=== PATIENT | female | born 1990 | race Caucasian/White ===

== ENCOUNTER 2016-07-16 20:10 | Emergency (ER) | payer MEDICAID ==
[2016-07-16] MEDS ORDERED: cefTRIAXone 1 GM in Sodium Chloride 0.9% 50 ML IV ONE (21:02)
[2016-07-16] MEDS ORDERED: Ketorolac 30 MG/ML SDV IVPUSH ONE (21:03)
[2016-07-16] MEDS ORDERED: Phenazopyridine 95 MG Tab PO ONE (21:03)
--- NOTE | 2016-07-16 21:05 | EDM.PDOC ---
[id number] INFECTION Time Seen by Provider: 07/16/16 21:05 Source: Reports: Patient History Limitations: Reports: No limitations - History of Present Illness INITIAL COMMENTS - FREE TEXT/NARRATIVE: pt arrived with pain in left flank at a 4-5. She has been vomiting for the past 2 days. She did have a fever of 102 this am. This pm she is holding some water down. 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 ) : Reports: no symptoms ED EXAM, RENAL/ - Physical Exam Exam: See Below Text/Narrative:: Pt arrived with pain in the left flank and dysuria. Exam Limited By: No limitations General Appearance: alert, anxious Ears: normal TMs Nose: normal inspection Throat/Mouth: Normal inspection Head: atraumatic Neck: normal inspection Respiratory/Chest: no respiratory distress Cardiovascular: regular rate, rhythm GI/Abdominal: other (pt has mild left flank tenderness. ) Rectal (Female) Exam: Deferred Back Exam: normal inspection Extremities: normal inspection Neurological: alert, oriented Course - Vital Signs Last Recorded V/S: Last Vital Signs Temp 36.9 C 07/16/16 22:21 Pulse 83 07/16/16 22:21 Resp 16 07/16/16 22:21 BP 104/34 L 07/16/16 22:21 Pulse Ox 99 07/16/16 22:21 - Orders/Labs/Meds Labs: Laboratory Tests 07/16/16 07/16/16 07/16/16 Range/Units 20:36 21:03 21:03 WBC 7.6 (4.5-11.0) K/uL RBC 4.78 (3.30-5.50) M/uL Hgb 13.9 (12.0-15.0) g/dL Hct 41.6 (36.0-48.0) % MCV 87 (80-98) fL MCH 29 (27-31) pg MCHC 33 (32-36) % Plt Count 244 (150-400) K/uL Neut % (Auto) 77 H (36-66) % Lymph % (Auto) 12 L (24-44) % [place] % (Auto) 8 H (2-6) % Eos % (Auto) 2 (2-4) % Baso % (Auto) 0 (0-1) % Sodium 140 (140-148) mmol/L Potassium 3.6 (3.6-5.2) mmol/L Chloride 102 (100-108) mmol/L Carbon Dioxide 28 (21-32) mmol/L Anion Gap 10.1 (5.0-14.0) mmol/L BUN 11 (7-18) mg/dL Creatinine 0.9 (0.6-1.0) mg/dL Est Cr Clr Drug Dosing 94.54 mL/min Estimated GFR (MDRD) > 60 (>60) Glucose 107 H (74-106) mg/dL Calcium 8.5 (8.5-10.1) mg/dL Total Bilirubin 0.7 (0.2-1.0) mg/dL AST 13 L (15-37) U/L ALT 23 (12-78) U/L Alkaline Phosphatase 74 (46-116) U/L C-Reactive Protein 2.90 H (0.0-0.3) mg/dL Total Protein 7.6 (6.4-8.2) g/dL Albumin 3.6 (3.4-5.0) g/dL Globulin 4.0 H (2.3-3.5) g/dL Albumin/Globulin Ratio 0.9 L (1.2-2.2) Urine Color Yellow Urine Appearance Slightly cloudy Urine pH 5.0 (4.5-8.0) Ur Specific [place] 1.010 (1.008-1.030) Urine Protein Negative (NEGATIVE) mg/dL Urine Glucose (UA) Normal (NEGATIVE) mg/dL Urine Ketones Negative (NEGATIVE) mg/dL Urine Occult Blood Trace (NEGATIVE) Urine Nitrite Negative (NEGATIVE) Urine Bilirubin Small (NEGATIVE) Urine Urobilinogen Normal (NORMAL) mg/dL Ur Leukocyte Esterase Large (NEGATIVE) Urine RBC 0-5 (0-5) Urine WBC 20-30 H (0-5) Ur Epithelial Cells Many Amorphous Sediment Not seen Urine Bacteria Not seen Urine Mucus Few Meds: Medications Discontinued Medications Generic Name Dose Route Start Last Admin Trade Name Freq PRN Reason Stop Dose Admin Sodium Chloride 1,000 mls @ 999 mls/hr 07/16/16 21:15 07/16/16 21:15 Normal Saline IV 999 mls/hr ASDIRECTED NI Administration Ceftriaxone Sodium 1 gm/ 50 mls @ 100 mls/hr 07/16/16 21:02 07/16/16 21:26 Sodium Chloride IV 07/16/16 21:31 100 mls/hr ONETIME ONE Administration Ketorolac Tromethamine 30 mg 07/16/16 21:03 07/16/16 21:24 Toradol IVPUSH 07/16/16 21:04 30 mg ONETIME ONE Administration Phenazopyridine HCl 190 mg 07/16/16 21:03 07/16/16 21:23 Urinary Pain Relief PO 07/16/16 21:04 190 mg ONETIME ONE Administration - Re-Assessments/Exams Free Text/Narrative Re-Assessment/Exam: 07/16/16 22:21 urine does look infected and she was cultured. She was given a liter of fluid. she is feeling better after the fluid. She was given rocephen. iv. Departure - Departure Time of Disposition: 22:55 Disposition: Home, Self-Care 01 Condition: fair Clinical Impression: UTI (urinary tract infection) Instructions: Urinary Tract Infection, Adult, [id number] Referrals: PCP,None [Primary Care Provider] - Forms: ED Department Discharge Care Plan Goals: push fluids, pyridium 200mg tid, cipro 500mg bid. rtc if problems.
[2016-07-16] MEDS ORDERED: Sodium Chloride 0.9% 1,000 ML IV SCH (21:15)
[2016-07-16 22:22] VITALS: BP 104/34
== END 2016-07-16 22:50 | disposition home or self-care (01) ==
LOC: JP.ED 20:10
DX: N39.0 Urinary tract infection, site not specified (principal); Z88.2 Allergy status to sulfonamides
CPT/HCPCS: 36415; 80053; 81001; 85025; 86140; 87086; 96365; 96375; 99284; A9270; J0696; J1885; J7040; J7050; 87088; 87186

== ENCOUNTER 2016-08-26 09:15 | Emergency (ER) | payer MEDICAID ==
[2016-08-26] MEDS ORDERED: Ketorolac 60 MG/2 ML SDV IM ONE (09:57)
[2016-08-26] MEDS ORDERED: Ondansetron 4 MG Tab.DIS PO ONE (09:58)
--- NOTE | 2016-08-26 10:08 | EDM.PDOC ---
ED HPI GENERAL MEDICAL PROBLEM - General Chief Complaint: General Stated Complaint: VOMITING/LOW RT BACK PAIN Time Seen by Provider: 08/26/16 09:55 Source of Information: Reports: Patient, Old Records, RN History Limitations: Reports: No Limitations - History of Present Illness INITIAL COMMENTS - FREE TEXT/NARRATIVE: 25 yo female awoke last night with right flank pain and vomiting. Later developed some diarrhea. No hematuria, dysuria, or fever. Took acetaminophen for the flank pain with partial relief. No hx of kidney stones. Onset: Today Onset Date: 08/26/16 Onset Time: 01:00 Duration: Hour(s):, Constant Location: Reports: Back (R flank) Quality: Reports: Ache Severity: Moderate Improves with: Reports: Medication (Acetaminophen reduced) Worsens with: Reports: None Context: Reports: Other (associated with vomiting and diarrhea) Associated Symptoms: Reports: Loss of Appetite, Nausea/Vomiting, Other (diarrhea ). 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 Denies: Fever, Chills HEENT: Reports: No Symptoms Respiratory: Reports: No Symptoms Cardiovascular: Reports: No Symptoms Endocrine: Reports: No Symptoms GI/Abdominal: Reports: Diarrhea, Decreased Appetite, Nausea, Vomiting. Denies: Abdominal Pain, Black Stool, Bloody Stool, Distension, Hematemesis, Hematochezia , Melena, Stool Incontinence : Reports: Flank Pain (right) Musculoskeletal: Reports: No Symptoms Skin: Reports: No Symptoms Neurological: Reports: No Symptoms Psychiatric: Reports: No Symptoms ED EXAM, GENERAL - Physical Exam Exam: See Below Exam Limited By: No Limitations General Appearance: Alert, WD/WN, No Apparent Distress, Obese Eye Exam: Bilateral Eye: Normal Inspection, PERRL Ears: Normal External Exam, Normal Canal, Hearing Grossly Normal Ear Exam: Bilateral Ear: Auricle Normal, Canal Normal, TM normal Nose: Normal Inspection, Normal Mucosa, No Blood Throat/Mouth: Normal Inspection, Normal Lips, Normal Teeth, Normal Oropharynx, Normal Voice, No Airway Compromise Head: Atraumatic, Normocephalic Neck: Normal Inspection, Supple, Non-Tender Respiratory/Chest: No Respiratory Distress, Lungs Clear, Normal Breath Sounds, No Accessory Muscle Use Cardiovascular: Regular Rate, Rhythm, No Edema GI/Abdominal: Normal Bowel Sounds, Soft, Non-Tender, No Distention Back Exam: Normal Inspection, CVA Tenderness (R). No: CVA Tenderness (L), Muscle Spasm, Vertebral Tenderness Extremities: Normal Inspection, Normal Range of Motion, Non-Tender, No Pedal Edema Neurological: Alert, Oriented, CN II-XII Intact, Normal Cognition, No Motor/ Sensory Deficits Psychiatric: Normal Affect, Normal Mood Skin Exam: Warm, Dry, Intact, Normal Color, No Rash Lymphatic: No Adenopathy Course - Vital Signs Text/Narrative:: Orthostatic vitals Toradol 60 mg IM, Zofran ODT 4 mg SL Last Recorded V/S: Last Vital Signs Temp 35.4 C 08/26/16 09:26 Pulse 112 H 08/26/16 09:26 Resp 16 08/26/16 09:26 BP 152/75 H 08/26/16 09:26 Pulse Ox 95 08/26/16 09:26 Orthostatic Blood Pressure [ 136/108 Standing] Orthostatic Blood Pressure [ 87/42 Sitting] Orthostatic Blood Pressure [ 96/51 Supine] - Orders/Labs/Meds Orders: Active Orders 24 hr Category Date Time Status Orthostatic Vital Signs [RC] ASDIRECTED Care 08/26/16 10:02 Active CULTURE URINE [RM] Stat Lab 08/26/16 11:02 Ordered [email or web address] [Rocephin] Med 08/26/16 11:03 Once 1 gm IM ONETIME ONE Labs: Laboratory Tests 08/26/16 08/26/16 Range/Units 09:57 10:50 Urine Color Yellow Urine Appearance Slightly cloudy Urine pH 9.0 H (4.5-8.0) Ur Specific [place] 1.015 (1.008-1.030) Urine Protein Negative (NEGATIVE) mg/dL Urine Glucose (UA) Normal (NEGATIVE) mg/dL Urine Ketones Negative (NEGATIVE) mg/dL Urine Occult Blood Negative (NEGATIVE) Urine Nitrite Negative (NEGATIVE) Urine Bilirubin Negative (NEGATIVE) Urine Urobilinogen Normal (NORMAL) mg/dL Ur Leukocyte Esterase Moderate (NEGATIVE) Urine RBC 0-5 (0-5) Urine WBC 10-20 H (0-5) Ur Epithelial Cells Moderate Amorphous Sediment Not seen Urine Bacteria Moderate Urine Mucus Not seen Urine HCG, Qual Negative Meds: Medications Discontinued Medications Generic Name Dose Route Start Last Admin Trade Name Freq PRN Reason Stop Dose Admin Ketorolac Tromethamine 60 mg 08/26/16 09:57 08/26/16 10:03 Toradol IM 08/26/16 09:58 60 mg ONETIME ONE Administration Ondansetron HCl 4 mg 08/26/16 09:58 08/26/16 10:03 Zofran Odt PO 08/26/16 09:59 4 mg ONETIME ONE Administration Departure - Departure Time of Disposition: 11:30 Disposition: Home, Self-Care 01 Condition: fair Clinical Impression: Nausea vomiting and diarrhea UTI (urinary tract infection) Qualifiers: Urinary tract infection type: site unspecified Hematuria presence: without hematuria Qualified Code(s): N39.0 - Urinary tract infection, site not specified - Discharge Information Forms: ED Department Discharge - My Orders Last 24 Hours: My Active Orders 08/26/16 10:02 Orthostatic Vital Signs [RC] ASDIRECTED 08/26/16 11:02 CULTURE URINE [RM] Stat 08/26/16 11:03 [email or web address] [Rocephin] 1 gm IM ONETIME ONE - Assessment/Plan Last 24 Hours: My Active Orders 08/26/16 10:02 Orthostatic Vital Signs [RC] ASDIRECTED 08/26/16 11:02 CULTURE URINE [RM] Stat 08/26/16 11:03 [email or web address] [Rocephin] 1 gm IM ONETIME ONE
[2016-08-26] MEDS ORDERED: cefTRIAXone 1 GM Vial IM ONE (11:03)
[2016-08-26] MEDS ORDERED: Lidocaine 1% PF 2 ML SDV INJECT ONE (11:09)
[2016-08-26 11:12] VITALS: BP 120/75
== END 2016-08-26 11:31 | disposition home or self-care (01) ==
LOC: JP.ED 09:15
DX: R11.2 Nausea with vomiting, unspecified (principal); R19.7 Diarrhea, unspecified; N39.0 Urinary tract infection, site not specified; Z79.899 Other long term (current) drug therapy; Z88.2 Allergy status to sulfonamides
CPT/HCPCS: 81001; 81025; 87086; 96372; 99284; A9270; J0696; J1885

== ENCOUNTER 2017-05-19 19:27 | Emergency (ER) | payer MEDICAID ==
[2017-05-19 19:57] VITALS: BP 126/77
[2017-05-19] MEDS ORDERED: Ondansetron 4 MG/2 ML SDV IVPUSH ONE (20:05)
[2017-05-19] MEDS ORDERED: Sodium Chloride 0.9% 1,000 ML IV SCH (20:15)
--- NOTE | 2017-05-19 20:22 | EDM.PDOC ---
ED HPI GENERAL MEDICAL PROBLEM - General Chief Complaint: Gastrointestinal Problem Stated Complaint: FLU SYMPTOMS / 10 WEEKS PG Time Seen by Provider: 05/19/17 19:50 Source of Information: Reports: Patient History Limitations: Reports: No Limitations - History of Present Illness INITIAL COMMENTS - FREE TEXT/NARRATIVE: 26-year-old female who is 10 weeks , was seen yesterday for routine and everything was good, heart tones were normal. She had been having a day of nausea with occasional vomiting and attributed it to the , but over the last 24 hours she's had increased vomiting and diarrhea. She also has children in the house that are starting to develop some symptoms. She called the nurse hotline and they recommended she come in for some symptomatic treatment and IV fluids. She had a low-grade fever just over 100 earlier today but no chills, she has not vomited any blood or passed any blood in the stool. No significant pain other than a mild cramping sensation in the lower abdomen. No vaginal spotting. Onset: Gradual (Over the last 2 days) Severity: Moderate Associated Symptoms: Reports: Fever/Chills (She may have been running a low- grade fever earlier today) generalized/ lower abd Pain Score (Numeric/FACES): 4 - Related Data Allergies Allergy/AdvReac Type Severity Reaction Status Date / Time Sulfa (Sulfonamide Allergy Nausea and Verified 05/19/17 19:53 Antibiotics) Vomiting Home Meds: Home Meds Pnv No.95/Ferrous Fum/Folic AC [ Multivitamin Tablet] 1 tab PO DAILY [History] Past Medical History HEENT History: Reports: Impaired Vision Genitourinary History: Reports: Pyelonephritis, UTI, Recurrent 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: 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 - Infectious Disease History Infectious Disease History: Reports: Chicken Pox - Past Surgical History HEENT Surgical History: Reports: Myringotomy w Tube(s) Social & Family History - Tobacco Use Smoking Status *Q: Never Smoker - Caffeine Use Caffeine Use: Reports: None - Recreational Drug Use Recreational Drug Use: No ED ROS GENERAL - Review of Systems Review Of Systems: See Below Constitutional: Reports: Fever (Low-grade earlier today) HEENT: Reports: No Symptoms Respiratory: Denies: Shortness of Breath Cardiovascular: Denies: Chest Pain GI/Abdominal: Reports: Abdominal Pain : Reports: No Symptoms Skin: Reports: No Symptoms Neurological: Reports: No Symptoms. Denies: Headache Psychiatric: Reports: No Symptoms ED EXAM, GI/ABD - Physical Exam Exam: See Below Exam Limited By: No Limitations General Appearance: Alert, No Apparent Distress Eyes: Bilateral: Normal Appearance (Good hydration) Throat/Mouth: Other (Mucous membranes are moist) Respiratory/Chest: No Respiratory Distress, Lungs Clear Cardiovascular: Tachycardia GI/Abdominal Exam: Normal Bowel Sounds, Soft, Tender (Just slight tenderness across the lower abdomen, no guarding or rebound) Extremities: Normal Inspection Neurological: Alert, Oriented Psychiatric: Normal Affect, Normal Mood Skin Exam: Warm, Dry Course - Vital Signs Last Recorded V/S: Last Vital Signs Temp 99.8 F 05/19/17 19:54 Pulse 116 H 05/19/17 19:54 Resp 18 05/19/17 19:54 BP 126/77 05/19/17 19:54 Pulse Ox 97 05/19/17 19:54 - Orders/Labs/Meds Meds: Medications Discontinued Medications Generic Name Dose Route Start Last Admin Trade Name Angie PRN Reason Stop Dose Admin Sodium Chloride 1,000 mls @ 1,000 mls/hr 05/19/17 20:15 05/19/17 20:15 Normal Saline IV 1,000 mls/hr ASDIRECTED NI Administration Ondansetron HCl 4 mg 05/19/17 20:05 05/19/17 20:15 Zofran IVPUSH 05/19/17 20:06 4 mg ONETIME ONE Administration - Re-Assessments/Exams Free Text/Narrative Re-Assessment/Exam: 05/19/17 20:22 An IV was started and the patient was given 1 L normal saline along with 4 mg of IV Zofran. 05/19/17 20:39 The IV Zofran took away her nausea. She felt much better after the IV fluids and Zofran. She'll be discharged with 5 additional doses of sublingual Zofran to use up to 3 times daily and should return if worsening despite treatment. Also consider recheck in 2-3 days if still persistent diarrhea and not improving satisfactorily Departure - Departure Time of Disposition: 21:13 Disposition: Home, Self-Care 01 Condition: Good Clinical Impression: Gastroenteritis - Discharge Information Instructions: Viral Gastroenteritis, Adult, [id number] Referrals: Roya Chandler CNM [Primary Care Provider] - Forms: ED Department Discharge Care Plan Goals: Use Zofran up to 3 times daily for nausea if needed. Advance diet as tolerated concentrating on fluids initially. Return anytime if worsening despite treatment , or consider rechecking in 2-3 days if not improving satisfactorily.
== END 2017-05-19 21:13 | disposition home or self-care (01) ==
LOC: JP.ED 19:27
DX: O99.611 Diseases of the digestive system complicating pregnancy, first trimester (principal); K52.9 Noninfective gastroenteritis and colitis, unspecified; Z88.2 Allergy status to sulfonamides; Z3A.10 10 weeks gestation of pregnancy
CPT/HCPCS: 96361; 96374; 99283; 99283-25; J2405; J7040

== ENCOUNTER 2017-12-16 22:43 | Inpatient (IN) | payer MEDICAID ==
[2017-12-16] MEDS ORDERED: Sodium Chloride 0.9% 10 ML Syringe FLUSH PRN (23:59)
[2017-12-17] MEDS ORDERED: fentaNYL 100 MCG/2 ML SDV IVPUSH PRN (02:13)
[2017-12-17] MEDS ORDERED: Acetaminophen 325 MG Tab PO PRN (02:13)
[2017-12-17] MEDS ORDERED: Ondansetron 4 MG/2 ML SDV IV PRN (02:13)
[2017-12-17] MEDS ORDERED: Lactated Ringers 1,000 ML IV SCH (02:15)
--- NOTE | 2017-12-17 02:23 | PCM.LDHP ---
L&D History of Present Illness - General Date of Service: 12/17/17 Admit Problem/Dx: Patient Status Order with Admit Dx/Problem 12/17/17 02:13 Patient Status [ADT] Routine Admission Diagnosis/Problem Admission Diagnosis/Problem - Related Data Allergies/Adverse Reactions: Allergies Allergy/AdvReac Type Severity Reaction Status Date / Time Sulfa (Sulfonamide Allergy Nausea and Verified 05/19/17 19:53 Antibiotics) Vomiting Home Medications: Home Meds Pnv No.95/Ferrous Fum/Folic AC [ Multivitamin Tablet] 1 tab PO DAILY [History] Amoxicillin 500 mg PO BID 11/07/17 [History] Ondansetron [Zofran ODT] 4 mg PO Q8H 11/07/17 [History] Past Medical History HEENT History: Reports: Impaired Vision Genitourinary History: Reports: Pyelonephritis, UTI, Recurrent [employer] History: Reports: : 2 Para: 1 Other OB/BYN History: KARI-12/14/2017 Musculoskeletal History: 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 - Infectious Disease History Infectious Disease History: Reports: Chicken Pox - Past Surgical History HEENT Surgical History: Reports: Myringotomy w Tube(s) Female Surgical History: Reports: None Social & Family History - Family History Family Medical History: Noncontributory - Tobacco Use Smoking Status *Q: Never Smoker Second Hand Smoke Exposure: No - Caffeine Use Caffeine Use: Reports: Coffee, Soda Caffeine Use Comment: 1 soda/ cofee daily - Recreational Drug Use Recreational Drug Use: No H&P Review of Systems - Review of Systems: Review Of Systems: See Below General: Reports: No Symptoms HEENT: Reports: No Symptoms Pulmonary: Reports: No Symptoms Cardiovascular: Reports: No Symptoms Gastrointestinal: Reports: No Symptoms Genitourinary: Reports: No Symptoms Musculoskeletal: Reports: No Symptoms Skin: Reports: No Symptoms Psychiatric: Reports: No Symptoms Neurological: Reports: No Symptoms Hematologic/Lymphatic: Reports: No Symptoms Immunologic: Reports: No Symptoms L&D Exam - Exam Exam: See Below - Vital Signs Vital Signs: Last Vital Signs Temp 36.6 C 12/16/17 22:50 Pulse 96 12/16/17 22:50 Resp BP 117/79 12/16/17 22:50 Pulse Ox 96 12/16/17 22:50 Weight: 220 kg - OB Specific Contraction Duration (sec): 40-70 Contraction Frequency (min): 6-10 Contraction Intensity: Mild Heart Rate (FHR) Variability: Moderate (6-25 bmp) Presentation: Vertex - Ang Score Ang Score Cervix Position: Midposition Ang Score Consistency: Soft Ang Score Effacement: 51-70% Ang Score Dilation: 1-2 cm Ang Score 's Station: -1 ,0 Ang Score Total: 8 - Exam General: Alert, Oriented HEENT: PERRLA, Conjunctiva Clear, EACs Clear, EOMI, Hearing Intact, Mucosa Moist & [place], Nares Patent, Normal Nasal Septum, Posterior Pharynx Clear, TMs Clear Neck: Supple, Trachea Midline Lungs: Clear to Auscultation, Normal Respiratory Effort Cardiovascular: Regular Rate, Regular Rhythm GI/Abdominal Exam: Normal Bowel Sounds, Soft, Non-Tender, No Organomegaly, No Distention, No Abnormal Bruit, No Mass, Pelvis Stable Rectal Exam: Normal Exam, Normal Rectal Tone Genitourinary: Normal external exam, Normal bimanual exam, Normal speculum exam Back Exam: Normal Inspection, Full Range of Motion Extremities: Normal Inspection, Normal Range of Motion, Non-Tender, No Pedal Edema, Normal Capillary Refill, Pedal Edema (3+ pitting pedal and edema up to top of tibia) Skin: Warm, Dry, Intact Neurological: Cranial Nerves Intact, Reflexes Equal Bilateral DTR: 2+: Patella (L), Patella (R) Psychiatric: Alert, Normal Affect, Normal Mood - Patient Data Lab Results Last 24 hrs: Laboratory Results - last 24 hr 12/16/17 12/16/17 12/16/17 Range/Units 00:01 00:15 22:51 WBC 11.0 (4.5-11.0) K/uL RBC 3.80 (3.30-5.50) M/uL Hgb 10.5 L D (12.0-15.0) g/dL Hct 31.5 L (36.0-48.0) % MCV 83 (80-98) fL MCH 28 (27-31) pg MCHC 33 (32-36) % Plt Count 281 (150-400) K/uL Neut % (Auto) 79 H (36-66) % Lymph % (Auto) 16 L (24-44) % [place] % (Auto) 5 (2-6) % Eos % (Auto) 1 L (2-4) % Baso % (Auto) 0 (0-1) % Urine Color Yellow Urine Appearance Slightly cloudy Urine pH 5.0 (4.5-8.0) Ur Specific [place] 1.025 (1.008-1.030) Urine Protein 30 H (NEGATIVE) mg/dL Urine Glucose (UA) Normal (NEGATIVE) mg/dL Urine Ketones Negative (NEGATIVE) mg/dL Urine Occult Blood Moderate (NEGATIVE) Urine Nitrite Negative (NEGATIVE) Urine Bilirubin Small (NEGATIVE) Urine Urobilinogen 4 (NORMAL) mg/dL Ur Leukocyte Esterase Small (NEGATIVE) Urine RBC 5-10 H (0-5) Urine WBC 0-5 (0-5) Ur Epithelial Cells Moderate Amorphous Sediment Urine Bacteria Few Urine Mucus Few Membrane Rupture (NEGATIVE) Urine Opiates Screen Negative (NEGATIVE) Ur Oxycodone Screen Negative (NEGATIVE) Urine Methadone Screen Negative (NEGATIVE) Ur Propoxyphene Screen Negative (NEGATIVE) Ur Barbiturates Screen Negative (NEGATIVE) Ur Tricyclics Screen Negative (NEGATIVE) Ur Phencyclidine Scrn Negative (NEGATIVE) Ur Amphetamine Screen Negative (NEGATIVE) U Methamphetamines Scrn Negative (NEGATIVE) Urine MDMA Screen Negative (NEGATIVE) U Benzodiazepines Scrn Negative (NEGATIVE) U Cocaine Metab Screen Negative (NEGATIVE) U Marijuana (THC) Screen Negative (NEGATIVE) 12/16/17 Range/Units 23:24 WBC (4.5-11.0) K/uL RBC (3.30-5.50) M/uL Hgb (12.0-15.0) g/dL Hct (36.0-48.0) % MCV (80-98) fL MCH (27-31) pg MCHC (32-36) % Plt Count (150-400) K/uL Neut % (Auto) (36-66) % Lymph % (Auto) (24-44) % [place] % (Auto) (2-6) % Eos % (Auto) (2-4) % Baso % (Auto) (0-1) % Urine Color Urine Appearance Urine pH (4.5-8.0) Ur Specific [place] (1.008-1.030) Urine Protein (NEGATIVE) mg/dL Urine Glucose (UA) (NEGATIVE) mg/dL Urine Ketones (NEGATIVE) mg/dL Urine Occult Blood (NEGATIVE) Urine Nitrite (NEGATIVE) Urine Bilirubin (NEGATIVE) Urine Urobilinogen (NORMAL) mg/dL Ur Leukocyte Esterase (NEGATIVE) Urine RBC (0-5) Urine WBC (0-5) Ur Epithelial Cells Amorphous Sediment Urine Bacteria Urine Mucus Membrane Rupture Positive H (NEGATIVE) Urine Opiates Screen (NEGATIVE) Ur Oxycodone Screen (NEGATIVE) Urine Methadone Screen (NEGATIVE) Ur Propoxyphene Screen (NEGATIVE) Ur Barbiturates Screen (NEGATIVE) Ur Tricyclics Screen (NEGATIVE) Ur Phencyclidine Scrn (NEGATIVE) Ur Amphetamine Screen (NEGATIVE) U Methamphetamines Scrn (NEGATIVE) Urine MDMA Screen (NEGATIVE) U Benzodiazepines Scrn (NEGATIVE) U Cocaine Metab Screen (NEGATIVE) U Marijuana (THC) Screen (NEGATIVE) Result Diagrams: 12/16/17 00:15 - Problem List (1) SNOMED Code(s): 44170032 ICD Code: Z34.90 - ENCNTR FOR SUPRVSN OF NORMAL , UNSP, UNSP TRIMESTER Status: Acute Current Visit: Yes Qualifiers: Weeks of gestation: 40 weeks Qualified Code(s): Z3A.40 - 40 weeks gestation of (2) SROM (spontaneous rupture of membranes) SNOMED Code(s): 860009993 ICD Code: EXT7805 - Status: Acute Current Visit: Yes Problem List Initiated/Reviewed/Updated: Yes Orders Last 24hrs: Active Orders 24 hr Category Date Time Status Patient Status [ADT] Routine ADT 12/17/17 02:13 Ordered Ambulate [RC] PER UNIT ROUTINE Care 12/17/17 02:13 Ordered Communication Order [RC] ASDIRECTED Care 12/16/17 23:59 Active Heart Tones [RC] PER UNIT ROUTINE Care 12/16/17 23:59 Active Non Stress Test [RC] Click to Edit Care 12/16/17 23:59 Active Notify Provider Vital Signs [RC] PRN Care 12/17/17 02:13 Ordered Notify Provider [RC] PRN Care 12/16/17 23:59 Active Notify Provider [RC] PRN Care 12/17/17 02:13 Ordered OB Check [OM.PC] Click to Edit Care 12/16/17 22:51 Ordered Up ad Radha [RC] ASDIRECTED Care 12/16/17 23:59 Active VTE/DVT Education [RC] Click to Edit Care 12/17/17 02:16 Ordered Vaccines to be Administered [RC] DAILY Care 12/17/17 00:36 Active Vital Signs [RC] PER UNIT ROUTINE Care 12/16/17 23:59 Active Regular Diet [DIET] Diet 12/17/17 Breakfast Active Acetaminophen [Tylenol] Med 12/17/17 02:13 Ordered 650 mg PO Q4H PRN Diphth,Pertuss(Acell),Tet Vac [Adacel] Med 12/19/17 00:36 Once 0.5 ml IM .ONCE ONE Lactated Ringers @ 125 MLS/HR(1000ml) Med 12/17/17 02:15 Ordered Lactated Ringers [Ringers, Lactated] 1,000 ml IV ASDIRECTED Ondansetron [Zofran] Med 12/17/17 02:13 Ordered 4 mg IV Q4H PRN Oxytocin/Normal Saline [Pitocin in NS 20 Units/1,000 ML Med 12/17/17 02:30 Ordered ] 20 unit in 1,000 ml IV TITRATE Sodium Chloride 0.9% [Saline Flush] Med 12/16/17 23:59 Active 10 ml FLUSH ASDIRECTED PRN fentaNYL [Sublimaze] Med 12/17/17 02:13 Ordered 100 mcg IVPUSH Q1H PRN DVT/VTE Prophylaxis Reflex [OM.PC] Routine Oth 12/17/17 02:13 Ordered Saline Lock Insert [OM.PC] Routine Oth 12/16/17 23:58 Ordered Saline Lock Insert [OM.PC] Routine Oth 12/16/17 23:59 Ordered Resuscitation Status Routine Resus Stat 12/16/17 23:59 Ordered Medication Orders Acetaminophen (Tylenol) 650 mg PO Q4H PRN PRN Reason: Pain (Mild 1-3) and fever Diphtheria/Tetanus/Acell Pertussis (Adacel) 0.5 ml IM .ONCE ONE Stop: 12/19/17 00:37 Fentanyl (Sublimaze) 100 mcg IVPUSH Q1H PRN PRN Reason: Pain (moderate 4-6) Lactated Ringer's (Ringers, Lactated) 1,000 mls @ 125 mls/hr IV ASDIRECTED NI Oxytocin/Sodium Chloride (Pitocin In Ns 20 Units/1,000 Ml) 20 unit in 1,000 mls @ 6 mls/hr IV TITRATE NI; Protocol Ondansetron HCl (Zofran) 4 mg IV Q4H PRN PRN Reason: Nausea/Vomiting Sodium Chloride (Saline Flush) 10 ml FLUSH ASDIRECTED PRN PRN Reason: Keep Vein Open Assessment/Plan Comment:: 12/17/2017 27 yo came in tonight with SROM at about 2100 on 12/16/2017 She is currently 40 3/7 gestational weeks Contractions very irregular SVE-2-3/60/-1--2 FHTs category one Patient tolerating contractions well Plan- Continue to monitor labor Continue to monitor FHTs Start Pitocin per protocol Pain management per patient request Plan and anticipate a vaginal delivery
--- NOTE | 2017-12-17 05:53 | PCM.PNLD ---
Labor Progress Note - VS & Meds Vital Signs: Last Vital Signs Temp 36.2 C 12/17/17 03:40 Pulse 98 12/17/17 03:40 Resp 18 12/17/17 03:40 BP 129/94 H 12/17/17 03:40 Pulse Ox 98 12/17/17 03:40 Active Medications: Current Medications Acetaminophen (Tylenol) 650 mg PO Q4H PRN PRN Reason: Pain (Mild 1-3) and fever Diphtheria/Tetanus/Acell Pertussis (Adacel) 0.5 ml IM .ONCE ONE Stop: 12/19/17 00:37 Fentanyl (Sublimaze) 100 mcg IVPUSH Q1H PRN PRN Reason: Pain (moderate 4-6) Lactated Ringer's (Ringers, Lactated) 1,000 mls @ 125 mls/hr IV ASDIRECTED NI Last Admin: 12/17/17 02:51 Dose: 125 mls/hr Oxytocin/Sodium Chloride (Pitocin In Ns 20 Units/1,000 Ml) 20 unit in 1,000 mls @ 6 mls/hr IV TITRATE NI; Protocol Last Titration: 12/17/17 03:32 Dose: 4 munits/min, 12 mls/hr Ondansetron HCl (Zofran) 4 mg IV Q4H PRN PRN Reason: Nausea/Vomiting Sodium Chloride (Saline Flush) 10 ml FLUSH ASDIRECTED PRN PRN Reason: Keep Vein Open - Uterine Contractions Uterine Monitoring Mode: External [place] Contraction Frequency (min): 2.5-4 Contraction Duration (sec): 50-70 Contraction Intensity: Moderate Uterine Resting Tone: Soft - Monitoring Heart Rate (FHR) Variability: Moderate (6-25 bmp) Accelerations: Present, 15x15 Strip Review: Category I - Vaginal Exam Dilation (cm): 5 Effacement (Percent): 90 Station: -1 Cervical Position: Anterior Sterile Vaginal Exam Performed By: Luna Mercer - Labor Progress (Free Text) Labor Progress: 12/17/2017 Patient progressing nicely SVE-5/90/-1-0 FHTs category one Contractions regular on Pitocin Patient tolerating pain with breathing and position change Plan- Continue to monitor labor Continue to monitor FHTs Pain management per patient request Plan and anticipate a vaginal delivery
[2017-12-17] MEDS ORDERED: Oxytocin 10 Units/1 ML SDV ONE (06:54)
[2017-12-17] MEDS ORDERED: Lidocaine 1% 50 ML MDV ONE (06:54)
[2017-12-17] MEDS ORDERED: Lanolin 100% Cream 40 GM Tube TOP PRN (09:01)
[2017-12-17] MEDS ORDERED: Witch Hazel Medicated Pads 100/Jar TOP PRN (09:01)
[2017-12-17] MEDS ORDERED: Benzocaine 20% Top Spray 56 GM Bottle TOP PRN (09:01)
--- NOTE | 2017-12-17 09:14 | PCM.DEL ---
L & D Note - General Info Date of Service: 12/17/17 (delivery) Mother's Due Date: 12/29/17 - Delivery Note Labor: Spontaneous Delivery Outcome: Livebirth Infant Delivery Method: Spontaneous Vaginal Delivery-Single Infant Delivery Mode: Spontaneous Presentation: Vertex Nuchal Cord: None Anesthesia Type: None Amniotic Fluid Description: Clear Episiotomy Type: None Laceration: None Placenta: Intact, Spontaneous, Expressed Cord: 3 Vessels Estimated Blood Loss: 100 : Stimulated, Warmed, Warmer Used Provider: Roya Chandler Score 1 min: 9 Score 5 min: 9 Second Stage Interventions: Reports: Second Nurse Reviewed Heart Tones, Encouragement Given, Pushing, McRobert's Position Delivery Comments (Free Text/Narrative):: 12/17/17 This 27 year old who is 40 3/7 weeks gestation today delivered via over and intact perineum a viable female on JAMES position. The baby was placed on mother's abdomen where she was dried and stimulated. She cried spontaneously. Apgars of 9 and ( . Three vessel cord. The placenta was expressed spontaneously intact. No laceration of cervix, vagina, rectum or perineum. EBL 100cc Mother and baby to post and nursery. Weight 7-6 Induction Criteria - Ang Score Ang Score Dilation: 1-2 cm Ang Score Effacement: 40-50% Ang Score Infant's Station: -1 ,0 Ang Score Consistency: Soft Ang Score Cervix Position: Midposition Ang Score Total: 7 Ang Score Presenting Part: Reports: Cephalic - Augmentation Estimated Pelvis: Reports: Adequate Weight Estimated:: Reports: AGA Reassuring Monitoring Strip: Yes Absence of Tachy Systole: Yes - General Info Date of Service: 12/17/17 Admission Dx/Problem (Free Text): Patient Status Order with Admit Dx/Problem 12/17/17 02:13 Patient Status [ADT] Routine Admission Diagnosis/Problem Admission Diagnosis/Problem Functional Status: Reports: Pain Controlled - Review of Systems General: Reports: No Symptoms HEENT: Reports: No Symptoms Pulmonary: Reports: No Symptoms Cardiovascular: Reports: No Symptoms Gastrointestinal: Reports: No Symptoms Genitourinary: Reports: No Symptoms Musculoskeletal: Reports: No Symptoms Skin: Reports: No Symptoms Neurological: Reports: No Symptoms Psychiatric: Reports: No Symptoms - Patient Data Vitals - Most Recent: Last Vital Signs Temp 97.9 F 12/17/17 05:59 Pulse 95 12/17/17 05:59 Resp 20 12/17/17 05:59 BP 118/90 12/17/17 05:59 Pulse Ox 96 12/17/17 05:59 Weight - Most Recent: 219 lb 15.988 oz I&O - Last 24 Hours: Intake & Output 12/16/17 12/17/17 12/17/17 22:59 06:59 14:59 Intake Total 600 Balance 600 Lab Results Last 24 Hours: Laboratory Results - last 24 hr 12/16/17 12/16/17 12/16/17 Range/Units 00:01 00:15 22:51 WBC 11.0 (4.5-11.0) K/uL RBC 3.80 (3.30-5.50) M/uL Hgb 10.5 L D (12.0-15.0) g/dL Hct 31.5 L (36.0-48.0) % MCV 83 (80-98) fL MCH 28 (27-31) pg MCHC 33 (32-36) % Plt Count 281 (150-400) K/uL Neut % (Auto) 79 H (36-66) % Lymph % (Auto) 16 L (24-44) % [place] % (Auto) 5 (2-6) % Eos % (Auto) 1 L (2-4) % Baso % (Auto) 0 (0-1) % Urine Color Yellow Urine Appearance Slightly cloudy Urine pH 5.0 (4.5-8.0) Ur Specific [place] 1.025 (1.008-1.030) Urine Protein 30 H (NEGATIVE) mg/dL Urine Glucose (UA) Normal (NEGATIVE) mg/dL Urine Ketones Negative (NEGATIVE) mg/dL Urine Occult Blood Moderate (NEGATIVE) Urine Nitrite Negative (NEGATIVE) Urine Bilirubin Small (NEGATIVE) Urine Urobilinogen 4 (NORMAL) mg/dL Ur Leukocyte Esterase Small (NEGATIVE) Urine RBC 5-10 H (0-5) Urine WBC 0-5 (0-5) Ur Epithelial Cells Moderate Amorphous Sediment Urine Bacteria Few Urine Mucus Few Membrane Rupture (NEGATIVE) Urine Opiates Screen Negative (NEGATIVE) Ur Oxycodone Screen Negative (NEGATIVE) Urine Methadone Screen Negative (NEGATIVE) Ur Propoxyphene Screen Negative (NEGATIVE) Ur Barbiturates Screen Negative (NEGATIVE) Ur Tricyclics Screen Negative (NEGATIVE) Ur Phencyclidine Scrn Negative (NEGATIVE) Ur Amphetamine Screen Negative (NEGATIVE) U Methamphetamines Scrn Negative (NEGATIVE) Urine MDMA Screen Negative (NEGATIVE) U Benzodiazepines Scrn Negative (NEGATIVE) U Cocaine Metab Screen Negative (NEGATIVE) U Marijuana (THC) Screen Negative (NEGATIVE) 12/16/17 Range/Units 23:24 WBC (4.5-11.0) K/uL RBC (3.30-5.50) M/uL Hgb (12.0-15.0) g/dL Hct (36.0-48.0) % MCV (80-98) fL MCH (27-31) pg MCHC (32-36) % Plt Count (150-400) K/uL Neut % (Auto) (36-66) % Lymph % (Auto) (24-44) % [place] % (Auto) (2-6) % Eos % (Auto) (2-4) % Baso % (Auto) (0-1) % Urine Color Urine Appearance Urine pH (4.5-8.0) Ur Specific [place] (1.008-1.030) Urine Protein (NEGATIVE) mg/dL Urine Glucose (UA) (NEGATIVE) mg/dL Urine Ketones (NEGATIVE) mg/dL Urine Occult Blood (NEGATIVE) Urine Nitrite (NEGATIVE) Urine Bilirubin (NEGATIVE) Urine Urobilinogen (NORMAL) mg/dL Ur Leukocyte Esterase (NEGATIVE) Urine RBC (0-5) Urine WBC (0-5) Ur Epithelial Cells Amorphous Sediment Urine Bacteria Urine Mucus Membrane Rupture Positive H (NEGATIVE) Urine Opiates Screen (NEGATIVE) Ur Oxycodone Screen (NEGATIVE) Urine Methadone Screen (NEGATIVE) Ur Propoxyphene Screen (NEGATIVE) Ur Barbiturates Screen (NEGATIVE) Ur Tricyclics Screen (NEGATIVE) Ur Phencyclidine Scrn (NEGATIVE) Ur Amphetamine Screen (NEGATIVE) U Methamphetamines Scrn (NEGATIVE) Urine MDMA Screen (NEGATIVE) U Benzodiazepines Scrn (NEGATIVE) U Cocaine Metab Screen (NEGATIVE) U Marijuana (THC) Screen (NEGATIVE) Med Orders - Current: Current Medications Acetaminophen (Tylenol) 650 mg PO Q4H PRN PRN Reason: Pain (Mild 1-3) and fever Benzocaine (Ramk-B-Egbxrua 20% [place]) 0 gm TOP Q4H PRN PRN Reason: Perineal Comfort Measure Diphtheria/Tetanus/Acell Pertussis (Adacel) 0.5 ml IM .ONCE ONE Stop: 12/19/17 09:01 Emollient Ointment (Lansinoh Hpa) 1 gm TOP ASDIRECTED PRN PRN Reason: Sore Nipples Fentanyl (Sublimaze) 100 mcg IVPUSH Q1H PRN PRN Reason: Pain (moderate 4-6) Lactated Ringer's (Ringers, Lactated) 1,000 mls @ 125 mls/hr IV ASDIRECTED NI Last Admin: 12/17/17 02:51 Dose: 125 mls/hr Oxytocin/Sodium Chloride (Pitocin In Ns 20 Units/1,000 Ml) 20 unit in 1,000 mls @ 6 mls/hr IV TITRATE NI; Protocol Last Titration: 12/17/17 03:32 Dose: 4 munits/min, 12 mls/hr Ondansetron HCl (Zofran) 4 mg IV Q4H PRN PRN Reason: Nausea/Vomiting Sodium Chloride (Saline Flush) 10 ml FLUSH ASDIRECTED PRN PRN Reason: Keep Vein Open Witch Doreen (Tucks) 1 pad TOP ASDIRECTED PRN PRN Reason: Hemorrhoids Discontinued Medications Lidocaine HCl (Xylocaine 1%) Confirm Administered Dose 100 ml .ROUTE .STK-MED ONE Stop: 12/17/17 06:55 Oxytocin (Pitocin) Confirm Administered Dose 10 unit .ROUTE .STK-MED ONE Stop: 12/17/17 06:55 - Exam General: Alert, Oriented HEENT: Pupils Equal Neck: Supple Lungs: Clear to Auscultation, Normal Respiratory Effort Cardiovascular: Regular Rate, Regular Rhythm GI/Abdominal Exam: Normal Bowel Sounds, No Distention (Female) Exam: Normal External Exam Back Exam: Normal Inspection Extremities: Normal Inspection, Pedal Edema Skin: Warm, Dry Neurological: No New Focal Deficit Psy/Mental Status: Alert, Normal Affect - Problem List & Annotations (1) Normal labor and delivery SNOMED Code(s): 70558183, 811014636 Code(s): O80 - ENCOUNTER FOR FULL-TERM UNCOMPLICATED DELIVERY Status: Acute Current Visit: Yes (2) SNOMED Code(s): 98039620 Code(s): Z34.90 - ENCNTR FOR SUPRVSN OF NORMAL , UNSP, UNSP TRIMESTER Status: Acute Current Visit: Yes Qualifiers: Weeks of gestation: 40 weeks Qualified Code(s): Z3A.40 - 40 weeks gestation of (3) SROM (spontaneous rupture of membranes) SNOMED Code(s): 451648672 Code(s): WLO2809 - Status: Acute Current Visit: Yes - Problem List Review Problem List Initiated/Reviewed/Updated: Yes - My Orders Last 24 Hours: My Active Orders 12/17/17 09:01 Benzocaine [[id number] 20% [place]] See Dose Instructions TOP Q4H PRN Lanolin [Lansinoh HPA] 1 gm TOP ASDIRECTED PRN Witch Doreen [Tucks] 1 pad TOP ASDIRECTED PRN Assess Lochia [WOMSER] Per Unit Routine Assess Uterine Involution [WOMSER] Per Unit Routine 12/17/17 09:02 Patient Status [ADT] Routine Vital Signs [RC] PFP 12/17/17 09:06 Ice Therapy [OM.PC] Per Unit Routine Perineal Care [OM.PC] Per Unit Routine Peripheral IV Discontinue [OM.PC] Routine Sitz Bath [OM.PC] Per Unit Routine 12/18/17 05:11 CBC WITH AUTO DIFF [HEME] AM - Assessment Assessment:: 12/17/17 27 year old without complications, female normal - Plan Plan:: 12/17/2017 27 yo came in tonight with SROM at about 2100 on 12/16/2017 She is currently 40 3/7 gestational weeks Contractions very irregular SVE-2-/-1--2 FHTs category one Patient tolerating contractions well Plan- Continue to monitor labor Continue to monitor FHTs Start Pitocin per protocol Pain management per patient request Plan and anticipate a vaginal delivery 12/17/17 routine cares support 24-48 hour stay cbc in am ice to bottom
[2017-12-17] MEDS ORDERED: Ibuprofen 200 MG Tab, 24 Tab Bulk Bottle PO PRN (09:27)
[2017-12-17] MEDS ORDERED: Acetaminophen 325 MG Tab, 50 Tab Bulk Bottle PO PRN (09:27)
--- NOTE | 2017-12-18 10:23 | PCM.PNPP ---
- General Info Date of Service: 12/18/17 (PPD 1 D/C) Admission Dx/Problem (Free Text): Patient Status Order with Admit Dx/Problem 12/17/17 02:13 Patient Status [ADT] Routine Admission Diagnosis/Problem Admission Diagnosis/Problem Functional Status: Reports: Pain Controlled - Review of Systems General: Reports: No Symptoms HEENT: Reports: No Symptoms Pulmonary: Reports: No Symptoms Cardiovascular: Reports: No Symptoms Gastrointestinal: Reports: No Symptoms Genitourinary: Reports: No Symptoms Musculoskeletal: Reports: No Symptoms Skin: Reports: No Symptoms Neurological: Reports: No Symptoms Psychiatric: Reports: No Symptoms - Patient Data Vital Signs - Most Recent: Last Vital Signs Temp 97.4 F 12/18/17 02:00 Pulse 54 L 12/18/17 02:00 Resp 16 12/18/17 02:00 BP 128/86 12/18/17 02:00 Pulse Ox 98 12/18/17 02:00 Weight - Most Recent: 219 lb 15.988 oz I&O - Last 24 Hours: Intake & Output 12/17/17 12/18/17 12/18/17 22:59 06:59 14:59 Intake Total 1000 Balance 1000 Lab Results - Last 24 Hours: Laboratory Results - last 24 hr 12/18/17 Range/Units 05:26 WBC 10.4 (4.5-11.0) K/uL RBC 3.55 (3.30-5.50) M/uL Hgb 9.7 L (12.0-15.0) g/dL Hct 30.2 L (36.0-48.0) % MCV 85 (80-98) fL MCH 27 (27-31) pg MCHC 32 (32-36) % Plt Count 230 (150-400) K/uL Neut % (Auto) 68 H (36-66) % Lymph % (Auto) 24 (24-44) % [place] % (Auto) 6 (2-6) % Eos % (Auto) 2 (2-4) % Baso % (Auto) 0 (0-1) % Med Orders - Current: Current Medications Acetaminophen (Tylenol Bulk Bottle) 325 - 650 mg PO Q4H PRN PRN Reason: Pain Last Admin: 12/17/17 10:35 Dose: 650 mg Benzocaine (Qcmg-N-Obhzhpg 20% Sulphur) 0 gm TOP Q4H PRN PRN Reason: Perineal Comfort Measure Last Admin: 12/17/17 10:35 Dose: 1 spray Diphtheria/Tetanus/Acell Pertussis (Adacel) 0.5 ml IM .ONCE ONE Stop: 12/19/17 09:01 Emollient Ointment (Lansinoh Hpa) 0 gm TOP ASDIRECTED PRN PRN Reason: Sore Nipples Lactated Ringer's (Ringers, Lactated) 1,000 mls @ 125 mls/hr IV ASDIRECTED NI Last Admin: 12/17/17 02:51 Dose: 125 mls/hr Ibuprofen (Motrin Bulk Bottle) 600 mg PO Q6H PRN PRN Reason: Pain Last Admin: 12/17/17 10:35 Dose: 600 mg Ondansetron HCl (Zofran) 4 mg IV Q4H PRN PRN Reason: Nausea/Vomiting Sodium Chloride (Saline Flush) 10 ml FLUSH ASDIRECTED PRN PRN Reason: Keep Vein Open Witch Doreen (Tucks) 1 pad TOP ASDIRECTED PRN PRN Reason: Hemorrhoids Last Admin: 12/17/17 10:35 Dose: 1 pad Discontinued Medications Acetaminophen (Tylenol) 650 mg PO Q4H PRN PRN Reason: Pain (Mild 1-3) and fever Fentanyl (Sublimaze) 100 mcg IVPUSH Q1H PRN PRN Reason: Pain (moderate 4-6) Oxytocin/Sodium Chloride (Pitocin In Ns 20 Units/1,000 Ml) 20 unit in 1,000 mls @ 6 mls/hr IV TITRATE NI; Protocol Last Titration: 12/17/17 03:32 Dose: 4 munits/min, 12 mls/hr Lidocaine HCl (Xylocaine 1%) Confirm Administered Dose 100 ml .ROUTE .STK-MED ONE Stop: 12/17/17 06:55 Last Admin: 12/17/17 10:36 Dose: Not Given Oxytocin (Pitocin) Confirm Administered Dose 10 unit .ROUTE .STK-MED ONE Stop: 12/17/17 06:55 Last Admin: 12/17/17 10:36 Dose: Not Given - Infant Interaction Infant Disposition, : [place] in Room with Family Infant Interaction: Holding Infant Feeding: Breastfed ; Nursed Well Support Person: Significant Other - Recovery Exam Fundal Tone: Firm Fundal Level: At Umbilicus Fundal Placement: Midline Lochia Amount: Moderate Lochia Color: Rubra/Red Perineum Description: Intact, Minimal Bruising/Swelling Episiotomy/Laceration: None Urinary Elimination: Voided - Exam General: Alert, Oriented HEENT: Pupils Equal, Pupils Reactive Neck: Supple Lungs: Clear to Auscultation, Normal Respiratory Effort Cardiovascular: Regular Rate, Regular Rhythm GI/Abdominal Exam: Soft, Non-Tender Extremities: Normal Inspection, Pedal Edema Skin: Warm, Dry, Intact Neurological: No New Focal Deficit Psy/Mental Status: Alert, Normal Affect, Normal Mood - Problem List & Annotations (1) Normal labor and delivery SNOMED Code(s): 87405036, 542792358 Code(s): O80 - ENCOUNTER FOR FULL-TERM UNCOMPLICATED DELIVERY Status: Acute Current Visit: Yes (2) SNOMED Code(s): 49837121 Code(s): Z34.90 - ENCNTR FOR SUPRVSN OF NORMAL , UNSP, UNSP TRIMESTER Status: Acute Current Visit: Yes Qualifiers: Weeks of gestation: 40 weeks Qualified Code(s): Z3A.40 - 40 weeks gestation of (3) SROM (spontaneous rupture of membranes) SNOMED Code(s): 722221237 Code(s): MOZ7210 - Status: Acute Current Visit: Yes - Problem List Review Problem List Initiated/Reviewed/Updated: Yes - My Orders Last 24 Hours: My Active Orders 12/17/17 09:27 Acetaminophen [Tylenol Bulk Bottle] 325 - 650 mg PO Q4H PRN Ibuprofen [Motrin Bulk Bottle] 600 mg PO Q6H PRN - Assessment Assessment:: 12/17/17 27 year old without complications, female normal 12/18/17 PPD 1, D/C HGB 9.7, restart Iron supplement going well Mood happy voiding flow light, mild cramping - Plan Plan:: 12/17/2017 27 yo came in tonight with SROM at about 2100 on 12/16/2017 She is currently 40 3/7 gestational weeks Contractions very irregular SVE-2-/-1--2 FHTs category one Patient tolerating contractions well Plan- Continue to monitor labor Continue to monitor FHTs Start Pitocin per protocol Pain management per patient request Plan and anticipate a vaginal delivery 12/17/17 routine cares support 24-48 hour stay cbc in am ice to bottom 12/18/17 Home today See me in 6-8 weeks for a post visit education on self care, and baby cares
[2017-12-18] MEDS ORDERED: Diphtheria,Pertussis(Acell),Tetanus Vaccine 0.5 ML SDV IM ONE (11:00)
[2017-12-18 13:57] VITALS: BP 132/93
[2017-12-19] MEDS ORDERED: Diphtheria,Pertussis(Acell),Tetanus Vaccine 0.5 ML SDV IM ONE (09:00)
== END 2017-12-18 12:00 | disposition home or self-care (01) | DRG 775 ==
LOC: JP.OBCHECK 22:43 → JP.OB 12-17 → OBSVTOIN 12-17 08:31 → INTOOBSV 12-17 09:02 → JP.OB 12-17 12:36 → JP.MS 12-17 12:36 → UNDODISIN 12-18 12:00
PROVIDERS: ADMIT Advanced Practice Midwife; ATTEND Nurse Practitioner Family
PROC: 10E0XZZ Delivery of Products of Conception, External Approach (ICD-10-PCS; principal; 2017-12-17)
DX: O80 Encounter for full-term uncomplicated delivery (principal); Z3A.40 40 weeks gestation of pregnancy; Z37.0 Single live birth; Z23 Encounter for immunization
CPT/HCPCS: 36415; 59409; 80305-QW; 81001; 84112; 85025; 90471; 90715; 99211; A9270-GY; J2590; J7120

== ENCOUNTER 2018-04-02 01:47 | Emergency (ER) | payer MEDICAID ==
[2018-04-02 02:07] VITALS: BP 129/74
[2018-04-02] MEDS ORDERED: methylPREDNISolone Sodium Succinate 125 MG/2 ML SDV IVPUSH ONE (02:35)
[2018-04-02] MEDS ORDERED: Ketorolac 30 MG/ML SDV IVPUSH ONE (02:35)
[2018-04-02] MEDS ORDERED: HYDROmorphone 0.5 MG/0.5 ML Syringe IVPUSH ONE (02:36)
--- NOTE | 2018-04-02 02:52 | EDM.PDOC ---
ED HPI GENERAL MEDICAL PROBLEM - General Chief Complaint: Headache Stated Complaint: HEADACHE Time Seen by Provider: 04/02/18 02:20 Source of Information: Reports: Patient, Family History Limitations: Reports: No Limitations - History of Present Illness INITIAL COMMENTS - FREE TEXT/NARRATIVE: 27-year-old female diagnosed with strep throat yesterday, has had a global headache for the past 24 hours. She has painful swallowing, but no shortness of breath, nausea or vomiting, significant rash or abdominal pain. 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 Musculoskeletal History: 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 - Infectious Disease History Infectious Disease History: Reports: Chicken Pox - Past Surgical History HEENT Surgical History: Reports: Myringotomy w Tube(s) Social & Family History - Family History Family Medical History: Noncontributory - Tobacco Use Smoking Status *Q: Never Smoker - Caffeine Use Caffeine Use: Reports: Coffee Caffeine Use Comment: 1 soda/ cofee daily - Recreational Drug Use Recreational Drug Use: No ED ROS GENERAL - Review of Systems Review Of Systems: See Below Constitutional: Reports: Fever, Chills, Decreased Appetite HEENT: Reports: Throat Pain Respiratory: Denies: Shortness of Breath, Cough Cardiovascular: Denies: Chest Pain GI/Abdominal: Reports: Nausea. Denies: Vomiting Musculoskeletal: Denies: Neck Pain Neurological: Reports: Headache - Physical Exam Exam: See Below Exam Limited By: No Limitations General Appearance: Alert, Mild Distress ( patient does look fairly uncomfortable) Eye Exam: Bilateral Eye: EOMI, PERRL Throat/Mouth: Other (Patient is well hydrated with moist mucous membranes) Head Exam: Atraumatic, Other (Some tenderness with palpation of the temporalis muscles especially on the right) Neck: Non-Tender Respiratory/Chest: No Respiratory Distress Neuro Exam (Abbreviated): Alert, Oriented, No Motor/Sensory Deficits Course - Vital Signs Last Recorded V/S: Last Vital Signs Temp 100.5 F 04/02/18 02:15 Pulse 121 H 04/02/18 02:15 Resp 16 04/02/18 02:15 BP 129/74 04/02/18 02:15 Pulse Ox 95 04/02/18 02:15 - Orders/Labs/Meds Orders: Active Orders 24 hr Category Date Time Status Saline Lock Insert [OM.PC] Routine Oth 04/02/18 02:35 Ordered Meds: Medications Discontinued Medications Generic Name Dose Route Start Last Admin Trade Name Freq PRN Reason Stop Dose Admin Hydromorphone HCl 0.5 mg 04/02/18 02:36 04/02/18 02:54 Dilaudid IVPUSH 04/02/18 02:37 0.5 mg ONETIME ONE Administration Ketorolac Tromethamine 30 mg 04/02/18 02:35 04/02/18 02:50 Toradol IVPUSH 04/02/18 02:36 30 mg ONETIME ONE Administration Methylprednisolone Sodium Succinate 125 mg 04/02/18 02:35 04/02/18 02:45 Solu-Medrol IVPUSH 04/02/18 02:36 125 mg ONETIME ONE Administration Sodium Chloride 10 ml 04/02/18 02:35 04/02/18 03:01 Saline Flush FLUSH 10 ml ASDIRECTED PRN Administration Keep Vein Open - Re-Assessments/Exams Free Text/Narrative Re-Assessment/Exam: 04/02/18 02:53 A saline lock was started, patient was given 125 mg of IV Solu-Medrol, 30 of Toradol and 0.5 Dilaudid. 04/02/18 03:05 Within 20 minutes of receiving the medications, the patient had marked improvement and was ready to go home. She was encouraged to stay hydrated, continue her antibiotics and return if worsening. Departure - Departure Time of Disposition: 03:33 Disposition: Home, Self-Care 01 Condition: Good Clinical Impression: Tension-type headache - Discharge Information Instructions: Tension Headache, Adult, [id number] Referrals: Roya Chandler CNM [Primary Care Provider] - Forms: ED Department Discharge Care Plan Goals: Stay hydrated, take antibiotic as prescribed and continue with ibuprofen or naproxen for recurring headache. Return to the emergency room if headache is not responding to medication and worsening. - My Orders Last 24 Hours: My Active Orders 04/02/18 02:35 Saline Lock Insert [OM.PC] Routine - Assessment/Plan Last 24 Hours: My Active Orders 04/02/18 02:35 Saline Lock Insert [OM.PC] Routine
[2018-04-02] MEDS: Sodium Chloride 0.9% 10 ML Syringe FLUSH PRN ×2 (02:54→03:01)
== END 2018-04-02 03:34 | disposition home or self-care (01) ==
LOC: JP.ED 01:47
DX: G44.209 Tension-type headache, unspecified, not intractable (principal); Z88.2 Allergy status to sulfonamides
CPT/HCPCS: 96374; 96375; 99284; J1170; J1885; J2930

== ENCOUNTER 2018-12-04 07:45 | Emergency (ER) | payer MEDICAID ==
[2018-12-04 07:59] VITALS: BP 122/83; PULSE 101
--- NOTE | 2018-12-04 08:18 | EDM.PDOC ---
ED HPI GENERAL MEDICAL PROBLEM - General Chief Complaint: ENT Problem Stated Complaint: LEFT EAR PAIN Time Seen by Provider: 12/04/18 07:50 Source of Information: Reports: Patient History Limitations: Reports: No Limitations - History of Present Illness INITIAL COMMENTS - FREE TEXT/NARRATIVE: 28-year-old female who was had nasal congestion for the past week developed left ear pain for the past 12 hours. No fevers or chills, denies cough or shortness of breath. She had many ear infections as a child but none for years. 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/14/2017 Musculoskeletal History: 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 - Infectious Disease History Infectious Disease History: Reports: Chicken Pox - Past Surgical History HEENT Surgical History: Reports: Myringotomy w Tube(s) Social & Family History - Family History Family Medical History: Noncontributory - Tobacco Use Smoking Status *Q: Never Smoker - Caffeine Use Caffeine Use: Reports: Coffee Caffeine Use Comment: 1 soda/ cofee daily - Recreational Drug Use Recreational Drug Use: No ED ROS ENT - Review of Systems Review Of Systems: See Below Constitutional: Denies: Fever, Chills HEENT: Reports: Ear Pain (Left-sided), Rhinitis Respiratory: Reports: No Symptoms Cardiovascular: Denies: Chest Pain GI/Abdominal: Denies: Nausea, Vomiting ED EXAM, ENT - Physical Exam Exam: See Below Exam Limited By: No Limitations General Appearance: Alert, No Apparent Distress (Looks uncomfortable but not distressed) Ears: Other (The right tympanic membrane is scarred from previous problems but no acute findings. On the left side there is no significant pain with movement of the ear helix, the tympanic membrane is bulging, red and distorted) Respiratory/Chest: No Respiratory Distress, Lungs Clear Course - Vital Signs Last Recorded V/S: Last Vital Signs Temp 95.7 F 12/04/18 07:58 Pulse 101 H 12/04/18 07:58 Resp 16 12/04/18 07:58 BP 122/83 12/04/18 07:58 Pulse Ox 96 12/04/18 07:58 - Re-Assessments/Exams Free Text/Narrative Re-Assessment/Exam: 12/04/18 08:16 Patient will be placed on amoxicillin 500 mg 3 times a day for at least 7 days, encouraged to take full dose ibuprofen and recheck in 2-3 days if not improving. Departure - Departure Time of Disposition: 08:19 Disposition: Home, Self-Care 01 Clinical Impression: Left otitis media Qualifiers: Otitis media type: suppurative Chronicity: acute Recurrence: non-recurrent Spontaneous tympanic membrane rupture: without spontaneous rupture Qualified Code(s): H66.002 - Acute suppurative otitis media without spontaneous rupture of ear drum, left ear - Discharge Information Instructions: Otitis Media, Adult, [id number] Referrals: Roya Chandler CNM [Primary Care Provider] - Forms: ED Department Discharge Care Plan Goals: Take antibiotic 3 times a day for at least 7 days, full dose naproxen or ibuprofen and can add Tylenol as well. Consider rechecking in 2-3 days if not improving satisfactorily.
== END 2018-12-04 08:23 | disposition home or self-care (01) ==
LOC: JP.ED 07:45
DX: H66.002 Acute suppurative otitis media without spontaneous rupture of ear drum, left ear (principal); Z88.2 Allergy status to sulfonamides
CPT/HCPCS: 99283

== ENCOUNTER 2019-03-03 17:39 | Emergency (ER) | payer MEDICAID ==
[2019-03-03 18:04] VITALS: BP 137/81; PULSE 82
--- NOTE | 2019-03-03 18:42 | EDM.PDOC ---
ED HPI GENERAL MEDICAL PROBLEM - General Chief Complaint: General Stated Complaint: AT CLINIC 02/28 FACE HURTS ON L SI TINGLING Time Seen by Provider: 03/03/19 18:25 Source of Information: Reports: Patient, Old Records History Limitations: Reports: No Limitations - History of Present Illness INITIAL COMMENTS - FREE TEXT/NARRATIVE: 28 yo female here with mostly L frontal sinus pain. Was seen in the clinic 3 d ago for this and Flonase was recommended and she is not getting better. Did not try to follow up in the clinic but rather comes now to the ER. Has minimal nasal congestion. No fever. Some numbness at times to the L side of her face. No post-nasal drip. Has been alternating max doses of ibuprofen and naproxen in order to get any relief. Didn't realize it was not safe to do this. Onset: Gradual Duration: Day(s):, Waxing/Waning Location: Reports: Face (left) Quality: Reports: Pressure (L eyebrow area), Other (numbness) Severity: Mild Improves with: Reports: None Worsens with: Reports: Other (unknown) Context: Reports: Other (See HPI) Associated Symptoms: Denies: Cough, Fever/Chills, Headaches, Nausea/Vomiting, Rash, Shortness of Breath Treatments SURGICAL PATHOLOGIST: Reports: Other (see below) (Flonase) Left Face/Facial Pain Score (Numeric/FACES): 6 - Related Data Allergies Allergy/AdvReac Type Severity Reaction Status Date / Time Sulfa (Sulfonamide Allergy Nausea and Verified 03/03/19 18:11 Antibiotics) Vomiting Home Meds: Home Meds Norethindrone [Norlyda] 1 tab PO DAILY 03/03/19 [History] Past Medical History HEENT History: Reports: Impaired Vision Genitourinary History: Reports: Pyelonephritis, UTI, Recurrent 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 Musculoskeletal History: 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 - Infectious Disease History Infectious Disease History: Reports: Chicken Pox - Past Surgical History Head Surgeries/Procedures: Reports: None HEENT Surgical History: Reports: Myringotomy w Tube(s) Female Surgical History: Reports: None Musculoskeletal Surgical History: Reports: None Dermatological Surgical History: Reports: None Social & Family History - Family History Family Medical History: Noncontributory - Tobacco Use Smoking Status *Q: Never Smoker Second Hand Smoke Exposure: No - Caffeine Use Caffeine Use: Reports: Coffee, Soda Caffeine Use Comment: 1 soda/ cofee daily - Recreational Drug Use Recreational Drug Use: No ED ROS GENERAL - Review of Systems Review Of Systems: See Below Constitutional: Reports: No Symptoms HEENT: Reports: Other (L eyebrow pressure) Respiratory: Reports: No Symptoms Cardiovascular: Reports: No Symptoms GI/Abdominal: Reports: No Symptoms : Reports: No Symptoms Musculoskeletal: Reports: No Symptoms Skin: Reports: No Symptoms Neurological: Reports: Numbness (L side of her face intermittently) Psychiatric: Reports: No Symptoms ED EXAM, GENERAL - Physical Exam Exam: See Below Exam Limited By: No Limitations General Appearance: Alert, WD/WN, No Apparent Distress Eye Exam: Bilateral Eye: Normal Inspection Ears: Normal External Exam, Normal Canal, Hearing Grossly Normal, Normal TMs Ear Exam: Bilateral Ear: Auricle Normal, Canal Normal, TM normal Nose: Normal Inspection, No Blood, Other (only mild congestion noted) Throat/Mouth: Normal Inspection, Normal Lips Head: Atraumatic, Normocephalic Neck: Normal Inspection, Supple, Non-Tender. No: Lymphadenopathy (R), Lymphadenopathy (L) Respiratory/Chest: No Respiratory Distress, Lungs Clear, Normal Breath Sounds, No Accessory Muscle Use Cardiovascular: Regular Rate, Rhythm, No Edema Extremities: Normal Inspection. No: Non-Tender, No Pedal Edema Neurological: Alert, Oriented, CN II-XII Intact, Normal Cognition, No Motor/ Sensory Deficits Psychiatric: Normal Affect, Normal Mood Course - Vital Signs Last Recorded V/S: Last Vital Signs Temp 36.4 C 03/03/19 18:12 Pulse 82 03/03/19 18:12 Resp 16 03/03/19 18:12 BP 137/81 03/03/19 18:12 Pulse Ox 98 03/03/19 18:12 - Radiology Interpretation Free Text/Narrative:: sinus [id number]: 1. Small air-fluid levels are present within the maxillary sinuses bilaterally, likely due to acute sinusitis. Dictated by Alan Pat MD @ 03/03/2019 6:59:[address] head- IMPRESSIONS: 1. No evidence of acute infarction, intracranial hemorrhage, or mass-effect seen. 2. Opacification of the left frontal sinus, ethmoid air cells are noted with mucosal thickening and air-fluid levels seen in the left sphenoid sinus. Findings are likely due to sinusitis. Correlation with physical exam is recommended to exclude any obstructing lesion near the left hiatus semilunaris. Dictated by Alan Pat MD @ 03/03/2019 7:32:09 PM Departure - Departure Time of Disposition: 19:55 Disposition: Home, Self-Care 01 Condition: Fair Clinical Impression: Frontal sinusitis Qualifiers: Chronicity: acute Recurrence: non-recurrent Qualified Code(s): J01.10 - Acute frontal sinusitis, unspecified - Discharge Information *PRESCRIPTION DRUG MONITORING PROGRAM REVIEWED*: No *COPY OF PRESCRIPTION DRUG MONITORING REPORT IN PATIENT RANULFO: No Instructions: Sinusitis, Adult, [id number] Referrals: Roya Chandler CNM [Primary Care Provider] - Forms: ED Department Discharge Additional Instructions: Use amoxicillin as directed. Use any decongestant like Afrin, Neosynephrine, Sudafed, etc to try to reduce the pressure. For pain relief use ibuprofen OR Aleve plus acetaminophen. May substitute Pione[place] for acetaminophen as needed for more relief. Recheck in the clinic on Wednesday. Sepsis Event Note - Evaluation Sepsis Screening Result: No Definite Risk - Focused Exam Vital Signs: Vital Signs Temp Pulse Resp BP Pulse Ox 03/03/19 18:12 36.4 C 82 16 137/81 98 03/03/19 18:03 36.4 C 82 16 137/81 98 Date Exam was Performed: 03/03/19 Time Exam was Performed: 19:52
--- NOTE | 2019-03-03 19:01 | CRLCR ---
INDICATION: Left frontal sinus pain, not responding to treatment TECHNIQUE: Sinus radiograph 2 views left COMPARISON: None FINDINGS: Bone: No acute fractures or aggressive bone lesions are identified in the nasal bones or anterior inferior nasal spine. Small air-fluid levels are present within the maxillary sinuses bilaterally, likely due to acute sinusitis. Sinus: The frontal and sphenoid sinuses and anterior ethmoid air cells are well aerated. Soft tissue: Unremarkable. No radiopaque foreign bodies are seen. IMPRESSION: 1. Small air-fluid levels are present within the maxillary sinuses bilaterally, likely due to acute sinusitis. Dictated by Alan Pat MD @ 03/03/2019 6:59:26 PM Dictated by: Alan Pat MD @ 03/03/2019 18:59:30 (Electronically Signed)
--- NOTE | 2019-03-03 19:34 | CRLCT ---
INDICATION: Severe headache, left facial numbness that fluctuates TECHNIQUE: CT Head without i.v. contrast. COMPARISON: None FINDINGS: CSF space: The ventricles are normal for age. Brain: No evidence of mass, acute infarction or hemorrhage is seen. No mass-effect or midline shift is seen. The brain parenchyma is otherwise normal in appearance with preservation of the villaseñor-white matter junction. Calvarium: Opacification of the left frontal sinus, ethmoid air cells are noted with mucosal thickening and air-fluid levels seen in the left sphenoid sinus. The maxillary sinuses are not visualized. The mastoid air cells are clear. The visualized orbits are grossly unremarkable. The calvarium is unremarkable in appearance with no fractures identified. IMPRESSIONS: 1. No evidence of acute infarction, intracranial hemorrhage, or mass-effect seen. 2. Opacification of the left frontal sinus, ethmoid air cells are noted with mucosal thickening and air-fluid levels seen in the left sphenoid sinus. Findings are likely due to sinusitis. Correlation with physical exam is recommended to exclude any obstructing lesion near the left hiatus semilunaris. Dictated by Alan Pat MD @ 03/03/2019 7:32:09 PM Please note that all CT scans at this facility use dose modulation, iterative reconstruction, and/or weight-based dosing when appropriate to reduce radiation dose to as low as reasonably achievable. Dictated by: Alan Pat MD @ 03/03/2019 19:32:13 (Electronically Signed)
== END 2019-03-03 20:08 | disposition home or self-care (01) ==
LOC: JP.ED 17:39
DX: J01.10 Acute frontal sinusitis, unspecified (principal); Z88.2 Allergy status to sulfonamides
CPT/HCPCS: 70450; 99284-25

== ENCOUNTER 2019-12-16 20:00 | Emergency (ER) | payer MEDICAID ==
[2019-12-16 20:30] VITALS: BP 141/84
[2019-12-16] MEDS ORDERED: Sodium Chloride 0.9% 1,000 ML IV SCH (20:45)
[2019-12-16 21:38] VITALS: PULSE 103
--- NOTE | 2019-12-16 22:20 | EDM.PDOC ---
ED HPI GENERAL MEDICAL PROBLEM - General Chief Complaint: General Stated Complaint: FEVER,CHILLS,HEADACHE,COUGH Time Seen by Provider: 12/16/19 22:14 Source of Information: Reports: Patient, RN, RN Notes Reviewed History Limitations: Reports: No Limitations - History of Present Illness INITIAL COMMENTS - FREE TEXT/NARRATIVE: Patient comes in with 3 to 4-day sinus pressure sinusitis as well as a cough, and sinusitis. Patient notes that today she has only had a glass of water, maybe a popsicle and half a slice of pizza. Patient is about 13 weeks and is unable to take much for her symptoms other than Tylenol. Patient is concerned that at home she has a fever in the 100-103 range with her thermometer. She does not feel she has been able to get this down and keep it down. Onset: Today, Sudden Onset Date: 12/16/19 Onset Time: 10:00 Duration: Hour(s):, Getting Worse Location: Reports: Head, Face Quality: Reports: Ache Severity: Moderate Improves with: Reports: None Worsens with: Reports: None Context: Reports: Sick Contact (Patient does note she uses with pickup and delivery she does not go into stores. 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 Upper Head Pain Score (Numeric/FACES): 5 - Related Data Allergies Allergy/AdvReac Type Severity Reaction Status Date / Time Sulfa (Sulfonamide Allergy Nausea and Verified 12/16/19 20:09 Antibiotics) Vomiting Home Meds: Home Meds Pnv No.95/Ferrous Fum/Folic AC [ Caplet] 1 each PO DAILY 12/16/19 [History] Past Medical History HEENT History: Reports: Impaired Vision, Sinusitis Genitourinary History: Reports: Pyelonephritis, UTI, Recurrent 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 History: KARI-12/14/2017 Musculoskeletal History: 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 Neurological History: Reports: Migraines - Infectious Disease History Infectious Disease History: Reports: Chicken Pox - Past Surgical History Head Surgeries/Procedures: Reports: None HEENT Surgical History: Reports: Myringotomy w Tube(s) Female Surgical History: Reports: None Musculoskeletal Surgical History: Reports: None Dermatological Surgical History: Reports: None Social & Family History - Family History Family Medical History: Noncontributory - Tobacco Use Smoking Status *Q: Never Smoker - Caffeine Use Caffeine Use: Reports: Coffee Caffeine Use Comment: coffee twice a week - Recreational Drug Use Recreational Drug Use: No ED ROS GENERAL - Review of Systems Review Of Systems: See Below Constitutional: Reports: Fever, Decreased Appetite HEENT: Reports: Sinus Problem Respiratory: Reports: No Symptoms Cardiovascular: Reports: No Symptoms Endocrine: Reports: No Symptoms GI/Abdominal: Reports: Decreased Appetite, Nausea : Reports: Other (Patient is approximately 13 weeks . Follows with the [facility] provider) Musculoskeletal: Reports: No Symptoms Skin: Reports: No Symptoms Neurological: Reports: No Symptoms Psychiatric: Reports: No Symptoms Hematologic/Lymphatic: Reports: No Symptoms Immunologic: Reports: No Symptoms ED EXAM, GENERAL - Physical Exam Exam: See Below Free Text/Narrative:: Patient without fever upon arrival to the ER. Patient has been using Tylenol regularly. Exam Limited By: No Limitations General Appearance: Alert, Mild Distress Ears: Normal External Exam, Normal Canal, Hearing Grossly Normal, Normal TMs Nose: Nasal Tenderness, Nasal Swelling Throat/Mouth: Normal Inspection, Normal Lips, Normal Teeth, Normal Gums, Normal Oropharynx Head: Atraumatic, Normocephalic Neck: Normal Inspection, Supple, Non-Tender, Full Range of Motion Respiratory/Chest: No Respiratory Distress, Lungs Clear, Normal Breath Sounds, No Accessory Muscle Use, Chest Non-Tender Cardiovascular: Normal Peripheral Pulses, Regular Rate, Rhythm, No Edema GI/Abdominal: Normal Bowel Sounds, Soft, Non-Tender, No Organomegaly, No Distention, No Abnormal Bruit Back Exam: Normal Inspection, Full Range of Motion Extremities: Normal Inspection, Normal Range of Motion, Non-Tender, No Pedal Edema, Normal Capillary Refill Neurological: Alert, Oriented, CN II-XII Intact, Normal Cognition, Normal Gait, Normal Reflexes, No Motor/Sensory Deficits Psychiatric: Normal Affect, Normal Mood Skin Exam: Warm, Dry, Intact, Normal Color, No Rash Lymphatic: No Adenopathy Course - Vital Signs Last Recorded V/S: Last Vital Signs Temp 37.9 C 12/16/19 20:27 Pulse 103 H 12/16/19 21:38 Resp 16 12/16/19 21:38 BP 141/84 H 12/16/19 20:27 Pulse Ox 99 12/16/19 21:38 - Orders/Labs/Meds Orders: Active Orders 24 hr Category Date Time Status Sodium Chloride 0.9% [Normal Saline] 1,000 ml Med 12/16/19 20:45 Active IV ASDIRECTED Medication Orders Sodium Chloride (Normal Saline) 1,000 mls @ 999 mls/hr IV ASDIRECTED NI Last Admin: 12/16/19 20:38 Dose: 999 mls/hr Documented by: MENDOZA Due to extreme decreased hydration noted today 1 glass of water and a popsicle, will provide IV hydration of 1 L to promote comfort and crease hydration status correction through the administration patient notes headache is reducing. Color is returned to patient's cheeks and she notes she does feel some improvement. Meds: Medications Generic Name Dose Route Start Last Admin Trade Name Fredia PRN Reason Stop Dose Admin Sodium Chloride 1,000 mls @ 999 mls/hr 12/16/19 20:45 12/16/19 20:38 Normal Saline IV 999 mls/hr ASDIRECTED NI Administration - Re-Assessments/Exams Free Text/Narrative Re-Assessment/Exam: 12/16/19 22:23 1 L of hydration complete. Patient is much improved per her words she is encouraged to force small amounts of fluid each hour to prevent dehydration she should be reaching 60 to 80 ounces of water minimum daily along with other fluid intake. Patient should avoid any foods or drink that may be dehydrating. Patient may continue the use of Tylenol as appropriate without using max daily dose several days in a row. Patient should follow-up with her primary care provider/OB doctor if she continues to have difficulty with fluid intake and/or consumption. Departure - Departure Time of Disposition: 22:28 Disposition: Home, Self-Care 01 Clinical Impression: Dehydration, Upper respiratory infection - Discharge Information *PRESCRIPTION DRUG MONITORING PROGRAM REVIEWED*: Not Applicable *COPY OF PRESCRIPTION DRUG MONITORING REPORT IN PATIENT RANULFO: Not Applicable Instructions: Viral Respiratory Infection, [id number], Dehydration, Adult, [id number] Referrals: Myla Carlson CNM [Primary Care Provider] - Forms: ED Department Discharge Additional Instructions: Attain hydration status. Encourage at least 60 to 80 ounces of water per day Care Plan Goals: Follow-up with BUSINESS INVESTOR if symptoms do not improve over the next couple of days. Sepsis Event Note (ED) - Evaluation Sepsis Screening Result: No Definite Risk - Focused Exam Vital Signs: Vital Signs Temp Pulse Pulse Resp BP Pulse Ox 12/16/19 21:38 103 H 16 99 12/16/19 20:27 37.9 C 141 H 20 141/84 H 100 12/16/19 20:25 118 H - My Orders Last 24 Hours: My Active Orders 12/16/19 20:45 Sodium Chloride 0.9% [Normal Saline] 1,000 ml IV ASDIRECTED - Assessment/Plan Last 24 Hours: My Active Orders 12/16/19 20:45 Sodium Chloride 0.9% [Normal Saline] 1,000 ml IV ASDIRECTED
== END 2019-12-16 22:30 | disposition home or self-care (01) ==
LOC: JP.ED 20:00
DX: O99.281 Endocrine, nutritional and metabolic diseases complicating pregnancy, first trimester (principal); E86.0 Dehydration; O99.511 Diseases of the respiratory system complicating pregnancy, first trimester; J06.9 Acute upper respiratory infection, unspecified; Z88.2 Allergy status to sulfonamides; Z3A.13 13 weeks gestation of pregnancy
CPT/HCPCS: 96360; 99283; J7030

== ENCOUNTER 2020-06-19 05:13 | Inpatient (IN) | payer MEDICAID ==
[2020-06-19] MEDS ORDERED: Sodium Chloride 0.9% 10 ML Syringe FLUSH PRN ×2 (07:18→07:53)
[2020-06-19] MEDS ORDERED: Ondansetron 4 MG/2 ML SDV IV PRN (07:53)
[2020-06-19] MEDS ORDERED: Lidocaine 1% 50 ML MDV INJECT ONE (07:53)
[2020-06-19] MEDS ORDERED: Calcium Carbonate 500 MG Tab.Chew PO PRN (07:53)
[2020-06-19] MEDS ORDERED: Misoprostol 50 MCG (1/2 of 100 MCG) Tab ONE (08:06)
[2020-06-19] MEDS ORDERED: Misoprostol 50 MCG (1/2 of 100 MCG) Tab VAG ONE (08:15)
--- NOTE | 2020-06-19 08:16 | PCM.LDHP ---
L&D History of Present Illness - General Date of Service: 06/19/20 Admit Problem/Dx: Patient Status Order with Admit Dx/Problem 06/19/20 07:54 Patient Status [ADT] Routine Admission Diagnosis/Problem Admission Diagnosis/Problem Term Source of Information: Patient History Limitations: Reports: No Limitations - History of Present Illness Introduction:: 06/19/20 29 yo is here for induction of labor at 39 3/7 weeks for gestational diabetes. She is well controlled on Levemir daily and dietary changes. She was on Metformin when first diagnosed with GDM, fasting blood sugars were >50% just over 100, all post meal blood sugars were at goal. After changing to Levemir all blood sugars have been at goal. Last growth US 68%. Other than GDM she has had an uncomplicated labor. She is GBS positive, A positive blood type, HIV/RPR/Hep B & C all non reactive, rubella immune. They are anticipating a boy. First two deliveries were vaginal without complication. Proven pelvis up to 7 lb 6 oz. Timing/Duration: Reports: intermittent Quality: Reports: Dull Severity: Mild Improves with: Reports: None Worsens with: Reports: None Associated Symptoms: Denies: vaginal bleeding, vaginal fluid - Related Data Allergies/Adverse Reactions: Allergies Allergy/AdvReac Type Severity Reaction Status Date / Time Sulfa (Sulfonamide Allergy Nausea and Verified 12/16/19 20:09 Antibiotics) Vomiting Home Medications: Home Meds Pnv No.95/Ferrous Fum/Folic AC [ Caplet] 1 each PO DAILY 12/16/19 [Hi story] Past Medical History HEENT History: Reports: Impaired Vision, Sinusitis Genitourinary History: Reports: Pyelonephritis, UTI, Recurrent 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: 2 LMP (Approximate): Other OB/BYN History: KARI 06/23/20 Musculoskeletal History: 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 Neurological History: Reports: Migraines - Infectious Disease History Infectious Disease History: Reports: Chicken Pox - Past Surgical History Head Surgeries/Procedures: Reports: None HEENT Surgical History: Reports: Myringotomy w Tube(s) Female Surgical History: Reports: None Musculoskeletal Surgical History: Reports: None Dermatological Surgical History: Reports: None Social & Family History - Family History Family Medical History: No Pertinent Family History - Caffeine Use Caffeine Use: Reports: Coffee Caffeine Use Comment: coffee twice a week H&P Review of Systems - Review of Systems: Review Of Systems: See Below General: Reports: No Symptoms HEENT: Reports: No Symptoms Pulmonary: Reports: No Symptoms Cardiovascular: Reports: No Symptoms Gastrointestinal: Reports: No Symptoms Genitourinary: Reports: No Symptoms Musculoskeletal: Reports: No Symptoms Skin: Reports: No Symptoms Psychiatric: Reports: No Symptoms Neurological: Reports: No Symptoms Hematologic/Lymphatic: Reports: No Symptoms Immunologic: Reports: No Symptoms L&D Exam - Exam Exam: See Below - OB Specific Movement: Active Heart Tones: Present Heart Tones per Min: 125 Heart Rate (FHR) Variability: Moderate (6-25 bmp) Presentation: Vertex Estimated Weight: 7.5-8 lb - Ang Score Ang Score Cervix Position: Midposition Ang Score Consistency: Soft Ang Score Effacement: 31-50% Ang Score Dilation: 1-2 cm Ang Score 's Station: -2 Ang Score Total: 6 - Exam General: Alert, Oriented HEENT: PERRLA, Conjunctiva Clear, Hearing Intact, Mucosa Moist & [place], Nares Patent, Normal Nasal Septum, Pupils Equal, Pupils Reactive Neck: Supple, Trachea Midline Lungs: Clear to Auscultation, Normal Respiratory Effort Cardiovascular: Regular Rate, Regular Rhythm GI/Abdominal Exam: Normal Bowel Sounds, Soft, Non-Tender, Pelvis Stable Rectal Exam: Normal Exam Genitourinary: Normal external exam, Normal bimanual exam, Cervical dilitation, Enlarged uterus. No: Vaginal bleeding, Vaginal discharge Back Exam: Normal Inspection, Full Range of Motion Extremities: Normal Inspection, Normal Range of Motion, Non-Tender, No Pedal Edema, Normal Capillary Refill Skin: Warm, Dry, Intact Neurological: Cranial Nerves Intact, Reflexes Equal Bilateral Psychiatric: Alert, Normal Affect, Normal Mood - Patient Data Lab Results Last 24 hrs: Laboratory Results - last 24 hr 06/19/20 06/19/20 06/19/20 Range/Units 07:18 07:19 07:42 WBC 7.5 (4.5-11.0) K/uL RBC 3.89 (3.30-5.50) M/uL Hgb 10.5 L (12.0-15.0) g/dL Hct 32.6 L (36.0-48.0) % MCV 84 (80-98) fL MCH 27 (27-31) pg MCHC 32 (32-36) % Plt Count 227 (150-400) K/uL Urine Color Yellow (YELLOW) Urine Appearance Slightly cloudy A (CLEAR) Urine pH 5.5 (5.0-8.0) Ur Specific [place] 1.015 (1.008-1.030) Urine Protein Negative (NEGATIVE) mg/dL Urine Glucose (UA) Negative (NEGATIVE) mg/dL Urine Ketones Negative (NEGATIVE) mg/dL Urine Occult Blood Negative (NEGATIVE) Urine Nitrite Negative (NEGATIVE) Urine Bilirubin Negative (NEGATIVE) Urine Urobilinogen 0.2 (0.2-1.0) EU/dL Ur Leukocyte Esterase Trace H (NEGATIVE) Urine Opiates Screen Negative (NEGATIVE) Ur Oxycodone Screen Negative (NEGATIVE) Urine Methadone Screen Negative (NEGATIVE) Ur Propoxyphene Screen Negative (NEGATIVE) Ur Barbiturates Screen Negative (NEGATIVE) Ur Tricyclics Screen Negative (NEGATIVE) Ur Phencyclidine Scrn Negative (NEGATIVE) Ur Amphetamine Screen Negative (NEGATIVE) U Methamphetamines Scrn Negative (NEGATIVE) Urine MDMA Screen Negative (NEGATIVE) U Benzodiazepines Scrn Negative (NEGATIVE) U Cocaine Metab Screen Negative (NEGATIVE) U Marijuana (THC) Screen Negative (NEGATIVE) Result Diagrams: 06/19/20 07:42 - Problem List (1) Term SNOMED Code(s): 20012213 ICD Code: Z34.90 - ENCNTR FOR SUPRVSN OF NORMAL , UNSP, UNSP TRIMESTER Status: Acute Current Visit: Yes (2) GDM, class A2 SNOMED Code(s): 48800347 ICD Code: O24.419 - GESTATIONAL DIABETES MELLITUS IN , UNSP CONTROL Status: Acute Current Visit: Yes (3) Encounter for induction of labor SNOMED Code(s): 384979922 ICD Code: Z34.90 - ENCNTR FOR SUPRVSN OF NORMAL , UNSP, UNSP TRIMESTER Status: Acute Current Visit: Yes Problem List Initiated/Reviewed/Updated: Yes Orders Last 24hrs: Active Orders 24 hr Category Date Time Status Patient Status [ADT] Routine ADT 06/19/20 07:54 Active Blood Glucose Check, Bedside [RC] PRN Care 06/19/20 07:57 Active Communication Order [RC] ASDIRECTED Care 06/19/20 07:54 Active Heart Tones [RC] PER UNIT ROUTINE Care 06/19/20 07:54 Active Non Stress Test [RC] Click to Edit Care 06/19/20 07:54 Active Notify Provider Vital Signs [RC] PRN Care 06/19/20 07:55 Active Notify Provider [RC] PRN Care 06/19/20 07:54 Active Up ad Radha [RC] ASDIRECTED Care 06/19/20 07:53 Active VTE/DVT Education [RC] Click to Edit Care 06/19/20 07:55 Active Vital Signs [RC] PER UNIT ROUTINE Care 06/19/20 07:54 Active Regular Diet [DIET] Diet 06/19/20 Breakfast Active COMPREHENSIVE METABOLIC PN,CMP [CHEM] Routine Lab 06/19/20 07:42 Received Calcium Carbonate [Tums] Med 06/19/20 07:53 Active 1,000 mg PO Q2H PRN Ondansetron [Zofran] Med 06/19/20 07:53 Active 4 mg IV Q4H PRN Sodium Chloride 0.9% [Saline Flush] Med 06/19/20 07:18 Active 10 ml FLUSH ASDIRECTED PRN miSOPROStoL [Cytotec] Med 06/19/20 08:15 Once 50 mcg VAG ONETIME ONE DVT/VTE Prophylaxis Reflex [OM.PC] Routine Oth 06/19/20 07:53 Ordered Saline Lock Insert [OM.PC] Routine Oth 06/19/20 07:18 Ordered Saline Lock Insert [OM.PC] Routine Oth 06/19/20 07:54 Ordered Resuscitation Status Routine Resus Stat 06/19/20 07:53 Ordered Medication Orders Calcium Carbonate/Glycine (Calcium Carbonate 500 Mg Tab.Chew) 1,000 mg PO Q2H PRN PRN Reason: Indigestion Misoprostol (Misoprostol 50 Mcg (1/2 Of 100 Mcg) Tab) 50 mcg VAG ONETIME ONE Stop: 06/19/20 08:16 Last Admin: 06/19/20 08:06 Dose: 50 mcg Documented by: MAKI Ondansetron HCl (Ondansetron 4 Mg/2 Ml Sdv) 4 mg IV Q4H PRN PRN Reason: Nausea/Vomiting Sodium Chloride (Sodium Chloride 0.9% 10 Ml Syringe) 10 ml FLUSH ASDIRECTED PRN PRN Reason: Keep Vein Open Assessment/Plan Comment:: 06/19/20 Assessment: 29 yo here for induction of labor due to GDM A2 controlled on once daily Levemir 8 units Healthy other than GDM GBS negative Hx of two prior vaginal deliveries without complication SVE /2 Plan: Cytotec 50 mcg vaginally now, continuous monitoring for 1 hour then can be monitored intermittently and up and moving Anticipate Plans to use Nitrous for pain if needed
[2020-06-19 08:59] LABS: CORONAVIRUS COVID-19 NAA NEGATIVE (NEGATIVE)
--- NOTE | 2020-06-19 12:23 | PCM.PNLD ---
Labor Progress Note - VS & Meds Vital Signs: Last Vital Signs Temp 36.7 C 06/19/20 07:54 Pulse 98 06/19/20 07:54 Resp 18 06/19/20 07:54 BP 132/68 06/19/20 07:54 Pulse Ox 98 06/19/20 07:54 Active Medications: Current Medications Calcium Carbonate/Glycine (Calcium Carbonate 500 Mg Tab.Chew) 1,000 mg PO Q2H PRN PRN Reason: Indigestion Ondansetron HCl (Ondansetron 4 Mg/2 Ml Sdv) 4 mg IV Q4H PRN PRN Reason: Nausea/Vomiting Sodium Chloride (Sodium Chloride 0.9% 10 Ml Syringe) 10 ml FLUSH ASDIRECTED PRN PRN Reason: Keep Vein Open Discontinued Medications Lidocaine HCl (Lidocaine 1% 50 Ml Mdv) 9 ml INJECT ONETIME ONE Stop: 06/19/20 07:54 Misoprostol (Misoprostol 50 Mcg (1/2 Of 100 Mcg) Tab) 50 mcg VAG ONETIME ONE Stop: 06/19/20 08:16 Last Admin: 06/19/20 08:06 Dose: 50 mcg Documented by: Misoprostol (Misoprostol 50 Mcg (1/2 Of 100 Mcg) Tab) Confirm Administered Dose 50 mcg .ROUTE .STK-MED ONE Stop: 06/19/20 08:07 Last Admin: 06/19/20 08:22 Dose: Not Given Documented by: - Uterine Contractions Uterine Monitoring Mode: External [place] Contraction Frequency (min): 4-6 Contraction Duration (sec): 60-70 Contraction Intensity: Mild to Moderate Uterine Resting Tone: Soft - Monitoring Heart Rate (FHR) Variability: Moderate (6-25 bmp) Accelerations: Present, 15x15 Decelerations: None Strip Review: Category I - Vaginal Exam Dilation (cm): 2 Effacement (Percent): 70 Station: -2 Cervical Position: Midposition Sterile Vaginal Exam Performed By: Myla Carlson - Labor Progress (Free Text) Labor Progress: 06/19/20 Assessment: Irregular contractions every 2-4 min, getting more painful, not breathing through them yet SVE 2/70/-2 Category 1 tracing Plan: Options talked through included 25 mcg vaginal cytotec vs pitocin IV vs seeing how things go on their own. We have decided to give it another 1-2 hours to see if she continues to contract on her own. If not, will do an intervention to augment then.
--- NOTE | 2020-06-19 17:36 | PCM.PNLD ---
Labor Progress Note - VS & Meds Vital Signs: Last Vital Signs Temp 36.9 C 06/19/20 13:00 Pulse 81 06/19/20 13:00 Resp 18 06/19/20 13:00 BP 131/81 06/19/20 13:00 Pulse Ox 98 06/19/20 13:00 Active Medications: Current Medications Calcium Carbonate/Glycine (Calcium Carbonate 500 Mg Tab.Chew) 1,000 mg PO Q2H PRN PRN Reason: Indigestion Oxytocin/Sodium Chloride (Pitocin In Ns 20 Units/1,000 Ml) 20 unit in 1,000 mls @ 6 mls/hr IV TITRATE NI; Protocol Last Titration: 06/19/20 15:01 Dose: 3 munits/min, 9 mls/hr Documented by: Ondansetron HCl (Ondansetron 4 Mg/2 Ml Sdv) 4 mg IV Q4H PRN PRN Reason: Nausea/Vomiting Sodium Chloride (Sodium Chloride 0.9% 10 Ml Syringe) 10 ml FLUSH ASDIRECTED PRN PRN Reason: Keep Vein Open Discontinued Medications Lidocaine HCl (Lidocaine 1% 50 Ml Mdv) 9 ml INJECT ONETIME ONE Stop: 06/19/20 07:54 Misoprostol (Misoprostol 50 Mcg (1/2 Of 100 Mcg) Tab) 50 mcg VAG ONETIME ONE Stop: 06/19/20 08:16 Last Admin: 06/19/20 08:06 Dose: 50 mcg Documented by: Misoprostol (Misoprostol 50 Mcg (1/2 Of 100 Mcg) Tab) Confirm Administered Dose 50 mcg .ROUTE .STK-MED ONE Stop: 06/19/20 08:07 Last Admin: 06/19/20 08:22 Dose: Not Given Documented by: - Uterine Contractions Uterine Monitoring Mode: External [place] Contraction Frequency (min): 1-2 Contraction Duration (sec): 40-80 Contraction Intensity: Moderate Uterine Resting Tone: Soft - Monitoring Monitor Mode: External Ultrasound Heart Rate (FHR) Baseline: 135 Heart Rate (FHR) Variability: Moderate (6-25 bmp) Accelerations: Present, 15x15 Decelerations: None Strip Review: Category I - Vaginal Exam Dilation (cm): 3 Effacement (Percent): 80 Station: -1 Cervical Position: Anterior Sterile Vaginal Exam Performed By: Myla Aldo - Labor Progress (Free Text) Labor Progress: 06/19/20 Assessment: Pitocin was started low dose at 2 pm for no cervical change, up to 4 mu before turned off SVE /-1, bloody show present Patient breathing through and certainly in active labor now Category 1 tracing, one variable seen but nothing recurrent Desires no pain medications, maybe Nitrous oxide towards the end Membranes intact Plan: Decision was made to turn pitocin off due to intensity of contractions Patient is in the tub Continue to monitor, Doptone in tub Anticipate
[2020-06-19] MEDS ORDERED: Lidocaine 1% 50 ML MDV ONE (18:59)
[2020-06-19] MEDS ORDERED: Ibuprofen 200 MG Tab, 24 Tab Bulk Bottle PO PRN (19:06)
[2020-06-19] MEDS ORDERED: Acetaminophen 325 MG Tab, 50 Tab Bulk Bottle PO PRN (19:06)
[2020-06-19] MEDS ORDERED: Benzocaine 20% Top Spray 56 GM Bottle TOP ONE (19:06)
[2020-06-19] MEDS ORDERED: Witch Hazel Medicated Pads 100/Jar TOP PRN (19:06)
[2020-06-19] MEDS ORDERED: Docusate Sodium 100 MG Cap PO PRN (19:06)
[2020-06-19] MEDS ORDERED: Lanolin 100% Cream 40 GM Tube TOP ONE (19:06)
--- NOTE | 2020-06-19 19:21 | PCM.DEL ---
L & D Note - General Info Date of Service: 06/19/20 Mother's Due Date: 06/23/20 - Delivery Note Labor: Augmented by ARM, Augmented by Oxytocin Cervical Ripening Method: Misoprostil Delivery Outcome: Livebirth Infant Delivery Method: Spontaneous Vaginal Delivery-Single Delivery Mode: Spontaneous Presentation: Left Occiput Anterior (JAMES) Nuchal Cord: None Anesthesia Type: Nitrous Oxide Amniotic Fluid Description: Clear Episiotomy Type: None Laceration: None, Periurethral (split in the skin, right side, not repaired) Placenta: Intact, Spontaneous Cord: 3 Vessels Estimated Blood Loss: 200 Resuscitation Needed: No [place]: Warmed, [place] Used Provider: Myla Carlson Score 1 min: 9 Score 5 min: 9 Second Stage Interventions: Reports: Second Nurse Assessed Progress of Descent, Second Nurse Reviewed Contraction Pattern, Second Nurse Reviewed Heart Tones, Encouragement Given, Pushing Effectively, Pushing, McRobert's Position Delivery Comments (Free Text/Narrative):: 06/19/20 29 yo was induced this morning with Cytotec 50 mcg vaginally at 39 3/7 weeks for GDM A2 controlled on Levemir. Cytotec gave her intermittent contractions but there was no cervical change this afternoon around 1400 so we added low dose pitocin. By 1700 contractions were so intense for patient that the pitocin was turned off and she continued to labor naturally. She used the tub and nitrous oxide for pain control. SROM of clear fluid at 8 cm. Category 1 tracing, early decelerations with contractions during the last several minutes. Difficulty getting a good strip due to patient changing positions and not tolerating anyone touching her abdomen. She spontaneously started pushing at 1849 and had a baby at 1850 in JAMES position, no nuchal cord present. He cried immediately and was placed on her chest. Apgars 9, 9. Delayed cord clamping done. Placenta was delivered spontaneously intact at 1859. There are no perineal, vaginal, or cervical lacerations. There is a small right periurethral split that is not repaired. Pitocin IV given for 3rd stage management, FF and EBL 200 ml. Baby is skin to skin and mom and baby are in stable condition, baby nursing. Stable blood sugars through out labor. Stages of labor: 1: 5424-3463 2: 9430-7176 3: 6031-5477 Induction Criteria - Ang Score Ang Score Dilation: 1-2 cm Ang Score Effacement: 40-50% Ang Score Infant's Station: -2 Ang Score Consistency: Soft Ang Score Cervix Position: Midposition Ang Score Total: 6 Ang Score Presenting Part: Reports: Cephalic - Induction Gestational Age >/= 39 wks: Yes Medical Indication: GDM A2 Estimated Pelvis: Reports: Adequate Reassuring Monitoring Strip: Yes Absence of Tachy Systole: Yes - Augmentation Estimated Pelvis: Reports: Adequate Weight Estimated:: Reports: AGA Reassuring Monitoring Strip: Yes Absence of Tachy Systole: Yes - General Info Date of Service: 06/19/20 Functional Status: Reports: Pain Controlled - Review of Systems General: Reports: Fatigue HEENT: Reports: No Symptoms Pulmonary: Reports: No Symptoms Cardiovascular: Reports: No Symptoms Gastrointestinal: Reports: No Symptoms Genitourinary: Reports: No Symptoms Musculoskeletal: Reports: No Symptoms Skin: Reports: No Symptoms Neurological: Reports: No Symptoms Psychiatric: Reports: No Symptoms - Patient Data Vitals - Most Recent: Last Vital Signs Temp 36.7 C 06/19/20 17:00 Pulse 93 06/19/20 17:00 Resp 18 06/19/20 17:00 BP 101/82 06/19/20 17:00 Pulse Ox 99 06/19/20 17:00 Weight - Most Recent: 105.868 kg Lab Results Last 24 Hours: Laboratory Results - last 24 hr 06/19/20 06/19/20 06/19/20 Range/Units 07:18 07:19 07:42 WBC 7.5 (4.5-11.0) K/uL RBC 3.89 (3.30-5.50) M/uL Hgb 10.5 L (12.0-15.0) g/dL Hct 32.6 L (36.0-48.0) % MCV 84 (80-98) fL MCH 27 (27-31) pg MCHC 32 (32-36) % Plt Count 227 (150-400) K/uL Sodium (140-148) mmol/L Potassium (3.6-5.2) mmol/L Chloride (100-108) mmol/L Carbon Dioxide (21-32) mmol/L Anion Gap (5.0-14.0) mmol/L BUN (7-18) mg/dL Creatinine (0.6-1.0) mg/dL Est Cr Clr Drug Dosing Estimated GFR (MDRD) (>60) Glucose (74-106) mg/dL Calcium (8.5-10.1) mg/dL Total Bilirubin (0.2-1.0) mg/dL AST (15-37) U/L ALT (12-78) U/L Alkaline Phosphatase (46-116) U/L Total Protein (6.4-8.2) g/dL Albumin (3.4-5.0) g/dL Globulin (2.3-3.5) g/dL Albumin/Globulin Ratio (1.2-2.2) Urine Color Yellow (YELLOW) Urine Appearance Slightly cloudy A (CLEAR) Urine pH 5.5 (5.0-8.0) Ur Specific [place] 1.015 (1.008-1.030) Urine Protein Negative (NEGATIVE) mg/dL Urine Glucose (UA) Negative (NEGATIVE) mg/dL Urine Ketones Negative (NEGATIVE) mg/dL Urine Occult Blood Negative (NEGATIVE) Urine Nitrite Negative (NEGATIVE) Urine Bilirubin Negative (NEGATIVE) Urine Urobilinogen 0.2 (0.2-1.0) EU/dL Ur Leukocyte Esterase Trace H (NEGATIVE) Urine Opiates Screen Negative (NEGATIVE) Ur Oxycodone Screen Negative (NEGATIVE) Urine Methadone Screen Negative (NEGATIVE) Ur Propoxyphene Screen Negative (NEGATIVE) Ur Barbiturates Screen Negative (NEGATIVE) Ur Tricyclics Screen Negative (NEGATIVE) Ur Phencyclidine Scrn Negative (NEGATIVE) Ur Amphetamine Screen Negative (NEGATIVE) U Methamphetamines Scrn Negative (NEGATIVE) Urine MDMA Screen Negative (NEGATIVE) U Benzodiazepines Scrn Negative (NEGATIVE) U Cocaine Metab Screen Negative (NEGATIVE) U Marijuana (THC) Screen Negative (NEGATIVE) Influenza Type A RNA (NEGATIVE) RSV RNA (INAAT) (NEGATIVE) Influenza Type B RNA (NEGATIVE) SARS-CoV-2 RNA (FERCHO) (NEGATIVE) 06/19/20 06/19/20 Range/Units 07:42 08:11 WBC (4.5-11.0) K/uL RBC (3.30-5.50) M/uL Hgb (12.0-15.0) g/dL Hct (36.0-48.0) % MCV (80-98) fL MCH (27-31) pg MCHC (32-36) % Plt Count (150-400) K/uL Sodium 138 L (140-148) mmol/L Potassium 3.6 (3.6-5.2) mmol/L Chloride 104 (100-108) mmol/L Carbon Dioxide 20 L (21-32) mmol/L Anion Gap 17.6 H (5.0-14.0) mmol/L BUN 10 (7-18) mg/dL Creatinine 0.7 (0.6-1.0) mg/dL Est Cr Clr Drug Dosing TNP Estimated GFR (MDRD) > 60 (>60) Glucose 102 (74-106) mg/dL Calcium 8.5 (8.5-10.1) mg/dL Total Bilirubin 0.2 D (0.2-1.0) mg/dL AST 11 L (15-37) U/L ALT 12 (12-78) U/L Alkaline Phosphatase 148 H D (46-116) U/L Total Protein 5.9 L (6.4-8.2) g/dL Albumin 2.4 L (3.4-5.0) g/dL Globulin 3.5 (2.3-3.5) g/dL Albumin/Globulin Ratio 0.7 L (1.2-2.2) Urine Color (YELLOW) Urine Appearance (CLEAR) Urine pH (5.0-8.0) Ur Specific [place] (1.008-1.030) Urine Protein (NEGATIVE) mg/dL Urine Glucose (UA) (NEGATIVE) mg/dL Urine Ketones (NEGATIVE) mg/dL Urine Occult Blood (NEGATIVE) Urine Nitrite (NEGATIVE) Urine Bilirubin (NEGATIVE) Urine Urobilinogen (0.2-1.0) EU/dL Ur Leukocyte Esterase (NEGATIVE) Urine Opiates Screen (NEGATIVE) Ur Oxycodone Screen (NEGATIVE) Urine Methadone Screen (NEGATIVE) Ur Propoxyphene Screen (NEGATIVE) Ur Barbiturates Screen (NEGATIVE) Ur Tricyclics Screen (NEGATIVE) Ur Phencyclidine Scrn (NEGATIVE) Ur Amphetamine Screen (NEGATIVE) U Methamphetamines Scrn (NEGATIVE) Urine MDMA Screen (NEGATIVE) U Benzodiazepines Scrn (NEGATIVE) U Cocaine Metab Screen (NEGATIVE) U Marijuana (THC) Screen (NEGATIVE) Influenza Type A RNA Negative (NEGATIVE) RSV RNA (INAAT) Negative (NEGATIVE) Influenza Type B RNA Negative (NEGATIVE) SARS-CoV-2 RNA (FERCHO) Negative (NEGATIVE) Med Orders - Current: Current Medications Acetaminophen (Acetaminophen 325 Mg Tab, 50 Tab Bulk Bottle) 0 mg PO Q4H PRN PRN Reason: Pain Benzocaine (Benzocaine 20% Top [place] 56 Gm Bottle) 0 gm TOP ONETIME ONE Stop: 06/19/20 19:07 Calcium Carbonate/Glycine (Calcium Carbonate 500 Mg Tab.Chew) 1,000 mg PO Q2H PRN PRN Reason: Indigestion Docusate Sodium (Docusate Sodium 100 Mg Cap) 100 mg PO BID PRN PRN Reason: Constipation Emollient Ointment (Lanolin 100% Cream 40 Gm Tube) 1 gm TOP ONETIME ONE Stop: 06/19/20 19:07 Oxytocin/Sodium Chloride (Pitocin In Ns 20 Units/1,000 Ml) 20 unit in 1,000 mls @ 6 mls/hr IV TITRATE NI; Protocol Last Titration: 06/19/20 17:10 Dose: 3 munits/min, 9 mls/hr Documented by: Ibuprofen (Ibuprofen 200 Mg Tab, 24 Tab Bulk Bottle) 600 mg PO Q6H PRN PRN Reason: Pain Ondansetron HCl (Ondansetron 4 Mg/2 Ml Sdv) 4 mg IV Q4H PRN PRN Reason: Nausea/Vomiting Sodium Chloride (Sodium Chloride 0.9% 10 Ml Syringe) 10 ml FLUSH ASDIRECTED PRN PRN Reason: Keep Vein Open Witch Doreen (Witch Doreen Medicated Pads 100/Jar) 1 pad TOP ASDIRECTED PRN PRN Reason: Other Discontinued Medications Lidocaine HCl (Lidocaine 1% 50 Ml Mdv) 9 ml INJECT ONETIME ONE Stop: 06/19/20 07:54 Lidocaine HCl (Lidocaine 1% 50 Ml Mdv) Confirm Administered Dose 50 ml .ROUTE .STK-MED ONE Stop: 06/19/20 19:00 Misoprostol (Misoprostol 50 Mcg (1/2 Of 100 Mcg) Tab) 50 mcg VAG ONETIME ONE Stop: 06/19/20 08:16 Last Admin: 06/19/20 08:06 Dose: 50 mcg Documented by: Misoprostol (Misoprostol 50 Mcg (1/2 Of 100 Mcg) Tab) Confirm Administered Dose 50 mcg .ROUTE .STK-MED ONE Stop: 06/19/20 08:07 Last Admin: 06/19/20 08:22 Dose: Not Given Documented by: - Exam General: Alert, Oriented HEENT: Pupils Equal, Pupils Reactive, Mucous Membr. Moist/[place] Neck: Supple Lungs: Clear to Auscultation, Normal Respiratory Effort Cardiovascular: Regular Rate, Regular Rhythm GI/Abdominal Exam: Normal Bowel Sounds, Soft, Non-Tender, Pelvis Stable (Female) Exam: Normal External Exam, Normal Bimanual Exam, Cervical Dilatation, Enlarged Uterus, Vaginal Bleeding Back Exam: Normal Inspection, Full Range of Motion Extremities: Normal Inspection, Normal Range of Motion, Non-Tender, No Pedal Ed david, Normal Capillary Refill Skin: Warm, Dry, Intact Neurological: No New Focal Deficit Psy/Mental Status: Alert, Normal Affect, Normal Mood - Problem List & Annotations (1) Term SNOMED Code(s): 66719753 Code(s): Z34.90 - ENCNTR FOR SUPRVSN OF NORMAL , UNSP, UNSP TRIMESTER Status: Acute Current Visit: Yes (2) GDM, class A2 SNOMED Code(s): 25948457 Code(s): O24.419 - GESTATIONAL DIABETES MELLITUS IN , UNSP CONTROL Status: Acute Current Visit: Yes (3) Encounter for induction of labor SNOMED Code(s): 173720789 Code(s): Z34.90 - ENCNTR FOR SUPRVSN OF NORMAL , UNSP, UNSP TRIMESTER Status: Acute Current Visit: Yes (4) (normal spontaneous vaginal delivery) SNOMED Code(s): 11666995, 347623015 Code(s): O80 - ENCOUNTER FOR FULL-TERM UNCOMPLICATED DELIVERY Status: Acute Current Visit: Yes - Problem List Review Problem List Initiated/Reviewed/Updated: Yes - My Orders Last 24 Hours: My Active Orders 06/19/20 07:18 Sodium Chloride 0.9% [Saline Flush] 10 ml FLUSH ASDIRECTED PRN Saline Lock Insert [OM.PC] Routine 06/19/20 07:53 Up ad Radha [RC] ASDIRECTED Calcium Carbonate [Tums] 1,000 mg PO Q2H PRN Ondansetron [Zofran] 4 mg IV Q4H PRN DVT/VTE Prophylaxis Reflex [OM.PC] Routine Resuscitation Status Routine 06/19/20 07:54 Patient Status [ADT] Routine Communication Order [RC] ASDIRECTED Heart Tones [RC] PER UNIT ROUTINE Non Stress Test [RC] Click to Edit Notify Provider [RC] PRN Vital Signs [RC] PER UNIT ROUTINE Saline Lock Insert [OM.PC] Routine 06/19/20 07:55 Notify Provider Vital Signs [RC] PRN VTE/DVT Education [RC] Click to Edit 06/19/20 07:57 Blood Glucose Check, Bedside [RC] PRN 06/19/20 Breakfast Regular Diet [DIET] 06/19/20 14:15 Oxytocin/Normal Saline [Pitocin in NS 20 Units/1,000 ML] 20 unit in 1,000 ml IV TITRATE 06/19/20 17:40 Nitrous Oxide Delivery [RC] ASDIRECTED 06/19/20 19:06 Consult to Clock Repair Technician [CONS] Routine Acetaminophen [Tylenol Bulk Bottle] See Dose Instructions PO Q4H PRN Benzocaine [Qcbi-U-Eqddbqs 20% [place]] See Dose Instructions TOP ONETIME ONE Docusate Sodium [Colace] 100 mg PO BID PRN Ibuprofen [Motrin Bulk Bottle] 600 mg PO Q6H PRN Lanolin [Lansinoh HPA] 1 gm TOP ONETIME ONE witch Doreen [Tucks] 1 pad TOP ASDIRECTED PRN Assess Lochia [WOMSER] Per Unit Routine Assess Uterine Involution [WOMSER] Per Unit Routine 06/19/20 19:07 Patient Status [ADT] Routine Vital Signs [RC] PFP Ice Therapy [OM.PC] Per Unit Routine Perineal Care [OM.PC] Per Unit Routine 06/20/20 05:11 CBC WITH AUTO DIFF [HEME] AM - Assessment Assessment:: 06/19/20 29 yo with at 39 3/7 weeks for A2 GDM Perineum intact other than right periurethral split not repaired FF, EBL 200 ml - Plan Plan:: 06/19/20 Assessment: 29 yo here for induction of labor due to GDM A2 controlled on once daily Levemir 8 units Healthy other than GDM GBS negative Hx of two prior vaginal deliveries without complication SVE /-2 Plan: Cytotec 50 mcg vaginally now, continuous monitoring for 1 hour then can be monitored intermittently and up and moving Anticipate Plans to use Nitrous for pain if needed 06/19/20 Routine cares support Anticipate discharge 24-48 hours
[2020-06-20] MEDS ORDERED: Benzocaine 20% Top Spray 56 GM Bottle TOP PRN (07:11)
[2020-06-20] MEDS ORDERED: Lanolin 100% Cream 40 GM Tube TOP PRN (07:12)
--- NOTE | 2020-06-20 08:32 | PCM.PNPP ---
- General Info Date of Service: 06/20/20 Functional Status: Reports: Pain Controlled - Review of Systems General: Reports: No Symptoms HEENT: Reports: No Symptoms Pulmonary: Reports: No Symptoms Cardiovascular: Reports: No Symptoms Gastrointestinal: Reports: No Symptoms Genitourinary: Reports: No Symptoms Musculoskeletal: Reports: No Symptoms Skin: Reports: No Symptoms Neurological: Reports: No Symptoms Psychiatric: Reports: No Symptoms - General Info Date of Service: 06/20/20 - Patient Data Vital Signs - Most Recent: Last Vital Signs Temp 36.2 C 06/20/20 07:19 Pulse 90 06/20/20 07:19 Resp 16 06/20/20 07:19 BP 108/63 06/20/20 07:19 Pulse Ox 100 06/20/20 07:19 Weight - Most Recent: 105.868 kg Lab Results - Last 24 Hours: Laboratory Results - last 24 hr 06/19/20 06/20/20 Range/Units 08:11 06:00 WBC 9.0 (4.5-11.0) K/uL RBC 3.51 (3.30-5.50) M/uL Hgb 9.5 L (12.0-15.0) g/dL Hct 29.4 L (36.0-48.0) % MCV 84 (80-98) fL MCH 27 (27-31) pg MCHC 32 (32-36) % Plt Count 231 (150-400) K/uL Neut % (Auto) 73 H (36-66) % Lymph % (Auto) 20 L (24-44) % [place] % (Auto) 6 (2-6) % Eos % (Auto) 1 L (2-4) % Baso % (Auto) 0 (0-1) % Influenza Type A RNA Negative (NEGATIVE) RSV RNA (INAAT) Negative (NEGATIVE) Influenza Type B RNA Negative (NEGATIVE) SARS-CoV-2 RNA (FERCHO) Negative (NEGATIVE) Med Orders - Current: Current Medications Acetaminophen (Acetaminophen 325 Mg Tab, 50 Tab Bulk Bottle) 0 mg PO Q4H PRN PRN Reason: Pain Last Admin: 06/19/20 19:56 Dose: 500 mg Documented by: Benzocaine (Benzocaine 20% Top [place] 56 Gm Bottle) 0 gm TOP Q4H PRN PRN Reason: PERINEAL PAIN Calcium Carbonate/Glycine (Calcium Carbonate 500 Mg Tab.Chew) 1,000 mg PO Q2H PRN PRN Reason: Indigestion Docusate Sodium (Docusate Sodium 100 Mg Cap) 100 mg PO BID PRN PRN Reason: Constipation Emollient Ointment (Lanolin 100% Cream 40 Gm Tube) 0 gm TOP ASDIRECTED PRN PRN Reason: SORE NIPPLES Oxytocin/Sodium Chloride (Pitocin In Ns 20 Units/1,000 Ml) 20 unit in 1,000 mls @ 6 mls/hr IV TITRATE NI; Protocol Last Titration: 06/19/20 19:30 Dose: 41.67 munits/min, 125 mls/hr Documented by: Ibuprofen (Ibuprofen 200 Mg Tab, 24 Tab Bulk Bottle) 600 mg PO Q6H PRN PRN Reason: Pain Last Admin: 06/19/20 19:56 Dose: 600 mg Documented by: Ondansetron HCl (Ondansetron 4 Mg/2 Ml Sdv) 4 mg IV Q4H PRN PRN Reason: Nausea/Vomiting Sodium Chloride (Sodium Chloride 0.9% 10 Ml Syringe) 10 ml FLUSH ASDIRECTED PRN PRN Reason: Keep Vein Open Witch Doreen (Witch Doreen Medicated Pads 100/Jar) 1 pad TOP ASDIRECTED PRN PRN Reason: Other Last Admin: 06/19/20 19:55 Dose: 1 pad Documented by: Discontinued Medications Benzocaine (Benzocaine 20% Top [place] 56 Gm Bottle) 0 gm TOP ONETIME ONE Stop: 06/19/20 19:07 Last Admin: 06/19/20 19:56 Dose: 1 spray Documented by: Emollient Ointment (Lanolin 100% Cream 40 Gm Tube) 1 gm TOP ONETIME ONE Stop: 06/19/20 19:07 Last Admin: 06/19/20 19:57 Dose: 1 applic Documented by: Lidocaine HCl (Lidocaine 1% 50 Ml Mdv) 9 ml INJECT ONETIME ONE Stop: 06/19/20 07:54 Last Admin: 06/19/20 20:00 Dose: Not Given Documented by: Lidocaine HCl (Lidocaine 1% 50 Ml Mdv) Confirm Administered Dose 50 ml .ROUTE .STK-MED ONE Stop: 06/19/20 19:00 Last Admin: 06/19/20 20:00 Dose: Not Given Documented by: Misoprostol (Misoprostol 50 Mcg (1/2 Of 100 Mcg) Tab) 50 mcg VAG ONETIME ONE Stop: 06/19/20 08:16 Last Admin: 06/19/20 08:06 Dose: 50 mcg Documented by: Misoprostol (Misoprostol 50 Mcg (1/2 Of 100 Mcg) Tab) Confirm Administered Dose 50 mcg .ROUTE .STK-MED ONE Stop: 06/19/20 08:07 Last Admin: 06/19/20 08:22 Dose: Not Given Documented by: - Interaction Infant Disposition, : in Room with Family Infant Interaction: Holding Infant Infant Feeding: Breastfed Infant; Nursed Well Support Person: - Recovery Exam Fundal Tone: Firm Fundal Level: 2 Fingerbreadths Below Umbilicus Fundal Placement: Midline Lochia Amount: Small Lochia Color: Rubra/Red Perineum Description: Intact, Minimal Bruising/Swelling Episiotomy/Laceration: None Bladder Status: Voiding Urinary Elimination: Voided - Exam General: Alert, Oriented HEENT: Pupils Equal Neck: Supple Lungs: Clear to Auscultation, Normal Respiratory Effort Cardiovascular: Regular Rate, Regular Rhythm GI/Abdominal Exam: Normal Bowel Sounds, Soft, Non-Tender, No Distention, Pelvis Stable Extremities: Normal Inspection, Normal Range of Motion, Non-Tender, No Pedal Edema, Normal Capillary Refill Skin: Warm, Dry, Intact Neurological: No New Focal Deficit Psy/Mental Status: Alert, Normal Affect, Normal Mood - Problem List & Annotations (1) Term SNOMED Code(s): 63299225 Code(s): Z34.90 - ENCNTR FOR SUPRVSN OF NORMAL , UNSP, UNSP TRIMESTER Status: Acute Current Visit: Yes (2) GDM, class A2 SNOMED Code(s): 63487227 Code(s): O24.419 - GESTATIONAL DIABETES MELLITUS IN , UNSP CONTROL Status: Acute Current Visit: Yes (3) Encounter for induction of labor SNOMED Code(s): 962558270 Code(s): Z34.90 - ENCNTR FOR SUPRVSN OF NORMAL , UNSP, UNSP TRIMESTER Status: Acute Current Visit: Yes (4) (normal spontaneous vaginal delivery) SNOMED Code(s): 02267177, 949410360 Code(s): O80 - ENCOUNTER FOR FULL-TERM UNCOMPLICATED DELIVERY Status: Acute Current Visit: Yes - Problem List Review Problem List Initiated/Reviewed/Updated: Yes - My Orders Last 24 Hours: My Active Orders 06/19/20 07:53 Up ad Radha [RC] ASDIRECTED Calcium Carbonate [Tums] 1,000 mg PO Q2H PRN Ondansetron [Zofran] 4 mg IV Q4H PRN DVT/VTE Prophylaxis Reflex [OM.PC] Routine Resuscitation Status Routine 06/19/20 07:54 Patient Status [ADT] Routine Communication Order [RC] ASDIRECTED Notify Provider [RC] PRN Vital Signs [RC] PER UNIT ROUTINE Saline Lock Insert [OM.PC] Routine 06/19/20 07:55 Notify Provider Vital Signs [RC] PRN VTE/DVT Education [RC] Click to Edit 06/19/20 07:57 Blood Glucose Check, Bedside [RC] PRN 06/19/20 Breakfast Regular Diet [DIET] 06/19/20 14:15 Oxytocin/Normal Saline [Pitocin in NS 20 Units/1,000 ML] 20 unit in 1,000 ml IV TITRATE 06/19/20 19:06 Consult to Retail Security Professional [CONS] Routine Acetaminophen [Tylenol Bulk Bottle] See Dose Instructions PO Q4H PRN Docusate Sodium [Colace] 100 mg PO BID PRN Ibuprofen [Motrin Bulk Bottle] 600 mg PO Q6H PRN witch Doreen [Tucks] 1 pad TOP ASDIRECTED PRN Assess Lochia [WOMSER] Per Unit Routine Assess Uterine Involution [WOMSER] Per Unit Routine 06/19/20 19:07 Patient Status [ADT] Routine Ice Therapy [OM.PC] Per Unit Routine Perineal Care [OM.PC] Per Unit Routine 06/20/20 07:11 Benzocaine [Wxxh-B-Uejvzif 20% [place]] 0 gm TOP Q4H PRN 06/20/20 07:12 Lanolin [Lansinoh HPA] 0 gm TOP ASDIRECTED PRN - Assessment Assessment:: 06/19/20 29 yo with at 39 3/7 weeks for A2 GDM Perineum intact other than right periurethral split not repaired FF, EBL 200 ml 06/20/20 PP day 1, uneventful so far Pain controlled FF and bleeding light going well Hgb from 10.5 to 9.5 - Plan Plan:: 06/19/20 Assessment: 29 yo here for induction of labor due to GDM A2 controlled on once daily Levemir 8 units Healthy other than GDM GBS negative Hx of two prior vaginal deliveries without complication SVE /-2 Plan: Cytotec 50 mcg vaginally now, continuous monitoring for 1 hour then can be monitored intermittently and up and moving Anticipate Plans to use Nitrous for pain if needed 06/19/20 Routine cares support Anticipate discharge 24-48 hours 06/20/20 Routine cares support 6 week check Possible discharge this evening if patient desires, otherwise discharge home tomorrow Continue blood sugar checks, patient can do at bedside
[2020-06-20 19:06] VITALS: BP 114/70; PULSE 95
== END 2020-06-20 19:45 | disposition home or self-care (01) | DRG 807 ==
LOC: JP.OB 07:12 → OBSVTOIN 18:50 → JP.OB 18:50 → JP.MS 23:00
PROVIDERS: ADMIT Advanced Practice Midwife; ATTEND Advanced Practice Midwife
PROC: 10E0XZZ Delivery of Products of Conception, External Approach (ICD-10-PCS; principal; 2020-06-19)
PROC: 10907ZC Drainage of Amniotic Fluid, Therapeutic from Products of Conception, Via Natural or Artificial Opening (ICD-10-PCS; 2020-06-19)
PROC: 3E0P7VZ Introduction of Hormone into Female Reproductive, Via Natural or Artificial Opening (ICD-10-PCS; 2020-06-19)
DX: O24.424 Gestational diabetes mellitus in childbirth, insulin controlled (principal); Z37.0 Single live birth; Z3A.39 39 weeks gestation of pregnancy; Z20.822 Contact with and (suspected) exposure to COVID-19; Z88.2 Allergy status to sulfonamides
CPT/HCPCS: 0241U; 36415; 80053; 80305-QW; 81003; 85025; 85027; 99211; A9270-GY; J2590

== ENCOUNTER 2021-06-27 10:09 | Emergency (ER) | payer MEDICAID ==
[2021-06-27] MEDS ORDERED: Cefepime 2 GM in Sodium Chloride 0.9% 50 ML IV SCH ×2 (11:00→12:00)
[2021-06-27] MEDS ORDERED: Lactated Ringers 1,000 ML IV SCH (11:00)
[2021-06-27] MEDS ORDERED: Vancomycin 1 GM SDV IV SCH (11:00)
[2021-06-27] MEDS ORDERED: Ondansetron 4 MG/2 ML SDV IVPUSH ONE (11:46)
[2021-06-27] MEDS ORDERED: fentaNYL 100 MCG/2 ML SDV IVPUSH ONE (11:47)
[2021-06-27] MEDS ORDERED: Vancomycin 2 GM in Sodium Chloride 0.9% 500 ML IV ONE (12:30)
[2021-06-27] MEDS ORDERED: Lactated Ringers 1,000 ML IV ONE (12:33)
[2021-06-27] MEDS ORDERED: Ibuprofen 600 MG Tab PO ONE (12:51)
[2021-06-27 14:41] VITALS: BP 104/47; PULSE 110
== END 2021-06-27 15:08 | disposition home or self-care (01) ==
LOC: JP.ED 10:09
DX: N61.0 Mastitis without abscess (principal); Z88.2 Allergy status to sulfonamides
CPT/HCPCS: 36415; 80053; 83605; 84145; 85025; 86140; 87040; 87070; 87077; 87186; 87205; 96365; 96366; 96367; 96375; 99283; 99283-25; A9270-GY; J0692; J2405; J3010; J3370; J3490; J7040; J7120

== ENCOUNTER 2021-10-24 20:11 | Emergency (ER) | payer MEDICAID ==
[2021-10-24 20:32] VITALS: BP 148/89; PULSE 101
== END 2021-10-24 22:05 | disposition home or self-care (01) ==
LOC: JP.ED 20:11
DX: S06.0X9A Concussion with loss of consciousness of unspecified duration, initial encounter (principal); Z88.2 Allergy status to sulfonamides; Z79.899 Other long term (current) drug therapy; W22.8XXA Striking against or struck by other objects, initial encounter
CPT/HCPCS: 70450; 81025; 99284

== ENCOUNTER 2022-10-04 14:12 | Emergency (ER) | payer MEDICAID ==
[2022-10-04 15:39] LABS: HEMATOCRIT 40.4 % (34.3-46.0); HEMOGLOBIN 13.9 g/dL (11.2-15.5); MEAN CORPUSCULAR HEMOGLOBIN 29.6 pg (31.6-35.5); MEAN CORPUSCULAR HGB CONC 34.4 g/dL (31.6-35.5); RED BLOOD CELL COUNT 4.7 M/uL (3.77-5.24); WHITE BLOOD CELL COUNT,WBC 7.7 K/uL (3.2-11.0)
[2022-10-04 15:45] LABS: APPEARANCE,URINE SLIGHTLY CLOUDY (CLEAR); BILIRUBIN,URINE NEGATIVE (NEGATIVE); COLOR,URINE YELLOW (YELLOW); GLUCOSE,URINE NEGATIVE (NEGATIVE); KETONES,URINE NEGATIVE (NEGATIVE); LEUKOCYTE ESTERASE,URINE NEGATIVE (NEGATIVE); NITRITE,URINE NEGATIVE (NEGATIVE); OCCULT BLOOD,URINE NEGATIVE (NEGATIVE); PROTEIN,URINE NEGATIVE (NEGATIVE); UROBILINOGEN,URINE 0.2 EU/dL (0.2-1.0)
[2022-10-04 15:54] LABS: AMORPHOUS SEDIMENT,URINE FEW; BACTERIA,URINE FEW; EPITHELIAL CELLS,URINE FEW; MUCUS,URINE RARE; RBC,URINE 0-5 (0-5); WBC,URINE 0-5 (0-5)
[2022-10-04 16:09] LABS: A/G RATIO 0.9 (1.2-2.2); ALANINE AMINOTRANSFERASE,ALT 21 U/L (12-78); ALBUMIN 3.3 g/dL (3.4-5.0); ALKALINE PHOSPHATASE 64 U/L (46-116); ASPARTATE AMNIOTRANSFERASE,AST 16 U/L (15-37); BILIRUBIN TOTAL 0.3 mg/dL (0.2-1.0); BLOOD UREA NITROGEN,BUN 11 mg/dL (7-18); CALCIUM 8.6 mg/dL (8.5-10.1); CARBON DIOXIDE,CO2 25 mmol/L (21-32); CHLORIDE,CL 104 mmol/L (100-108); CREATININE 0.8 mg/dL (0.6-1.0); EST CRCL DRUG DOSING (CG) 99.99 mL/min; ESTIMATED GFR 102 mL/min (>60); GLUCOSE RANDOM 108 mg/dL (74-106); POTASSIUM,K 3.3 mmol/L (3.6-5.2); SODIUM,NA 139 mmol/L (140-148)
[2022-10-04 16:10] LABS: ANION GAP 13.3 mmol/L (5.0-14.0)
[2022-10-04 19:49] VITALS: BP 135/71; PULSE 97
== END 2022-10-04 19:45 | disposition home or self-care (01) ==
LOC: JP.ED 14:12
DX: K80.50 Calculus of bile duct without cholangitis or cholecystitis without obstruction (principal); Z88.2 Allergy status to sulfonamides
CPT/HCPCS: 36415; 76705; 80053; 81001; 81025; 83690; 85027; 86140; 99284

== ENCOUNTER 2022-10-16 07:19 | Day surgery (SDC) | payer MEDICAID ==
[2022-10-16] MEDS ORDERED: fentaNYL 100 MCG/2 ML SDV ONE (07:26)
[2022-10-16] MEDS ORDERED: Propofol 200 MG/20 ML SDV ONE (07:26)
[2022-10-16] MEDS ORDERED: Midazolam 1 MG/ML 2 ML SDV ONE (07:26)
[2022-10-16] MEDS ORDERED: Lactated Ringers 1,000 ML IV SCH (08:00)
[2022-10-16 11:09] VITALS: BP 90/45; PULSE 78
== END 2022-10-16 11:20 | disposition home or self-care (01) ==
LOC: JP.SDS 07:19
PROVIDERS: ATTEND Student in an Organized Health Care Education/Training Program
DX: K29.50 Unspecified chronic gastritis without bleeding (principal); K21.9 Gastro-esophageal reflux disease without esophagitis; F41.9 Anxiety disorder, unspecified; F32.A Depression, unspecified; Z88.2 Allergy status to sulfonamides
CPT/HCPCS: 43239; 81025; 88305; J2250; J2704; J3010; J7120

== ENCOUNTER 2022-11-25 05:51 | Observation (INO) | payer MEDICAID ==
[2022-11-25] MEDS ORDERED: Indocyanine Green 25 MG SDV IV ONE (06:30)
[2022-11-25] MEDS ORDERED: Bupivacaine 0.5%/EPINEPHrine 1:200,000 50 ML MDV ONE (06:36)
[2022-11-25] MEDS ORDERED: Lactated Ringers 1,000 ML IV SCH (07:00)
[2022-11-25] MEDS ORDERED: fentaNYL 250 MCG/5 ML SDV ONE ×2 (07:21→08:12)
[2022-11-25] MEDS ORDERED: Dexamethasone 4 MG/ML SDV ONE (07:22)
[2022-11-25] MEDS ORDERED: Rocuronium 50 MG/5 ML Vial ONE (07:22)
[2022-11-25] MEDS ORDERED: Succinylcholine 200 MG/10 ML MDV ONE (07:22)
[2022-11-25] MEDS ORDERED: Ondansetron 4 MG/2 ML SDV ONE (07:22)
[2022-11-25] MEDS ORDERED: Neostigmine Methylsulfate 1 MG/ML 5 ML Syringe ONE (07:22)
[2022-11-25] MEDS ORDERED: Glycopyrrolate 0.2 MG/ML 5 ML MDV ONE (07:22)
[2022-11-25] MEDS ORDERED: Propofol 200 MG/20 ML SDV ONE (07:22)
[2022-11-25] MEDS ORDERED: Albuterol/Ipratropium 3.0-0.5 MG/3 ML Neb Soln NEB ONE (08:00)
[2022-11-25] MEDS ORDERED: Piperacillin/Tazobactam/Dext 3.375 GM in Premix Bag 1 BAG IV ONE (08:00)
[2022-11-25] MEDS ORDERED: Labetalol 20 MG/4 ML Syringe ONE (08:42)
[2022-11-25] MEDS ORDERED: Lactated Ringers 1,000 ML ONE (09:10)
[2022-11-25] MEDS ORDERED: hydrOXYzine HCL 100 MG/2 ML SDV IM ONE (09:36)
[2022-11-25] MEDS ORDERED: fentaNYL 50 MCG/ML SDV IVPUSH ONE (09:36)
[2022-11-25] MEDS ORDERED: Ondansetron 4 MG/2 ML SDV IVPUSH ONE (09:37)
[2022-11-25] MEDS ORDERED: Ketorolac 15 MG/ML SDV IVPUSH ONE (10:20)
[2022-11-25] MEDS ORDERED: Scopolamine 1.5 MG Transdermal Patch TOP ONE (10:30)
[2022-11-25] MEDS ORDERED: SUMATRIPTAN 25 MG PO PRN (10:36)
[2022-11-25] MEDS ORDERED: Sennosides/Docusate Sodium 50-8.6 MG Tab PO PRN (10:37)
[2022-11-25] MEDS: oxyCODONE 5 MG Tab PO PRN ×2 (11:47→19:31)
[2022-11-25] MEDS ORDERED: Acetaminophen 325 MG Tab PO SCH (14:00)
[2022-11-25] MEDS ORDERED: Ondansetron 4 MG/2 ML SDV IVPUSH PRN (15:00)
[2022-11-25] MEDS ORDERED: Ketorolac 15 MG/ML SDV IVPUSH SCH (17:00)
[2022-11-25 17:42] VITALS: BP 121/54; PULSE 94
[2022-11-26] MEDS ORDERED: Pantoprazole 40 MG Tab.CR PO SCH (07:30)
[2022-11-26] MEDS ORDERED: Loratadine 10 MG Tab PO SCH (09:00)
[2022-11-26] MEDS ORDERED: Non-Formulary Medication 1 Each (Loratadine [Claritin] 10 MG Capsule) PO SCH (09:00)
[2022-11-26] MEDS ORDERED: Non-Formulary Medication 1 Each (Omeprazole [Omeprazole] 40 MG Cap.Cr) PO SCH (09:00)
[2022-11-26] MEDS ORDERED: FLUoxetine 20 MG Cap PO SCH (09:00)
[2022-11-26] MEDS ORDERED: FLUOXETINE 20 MG/5 ML PO SCH (09:00)
[2022-11-26] MEDS ORDERED: NORETHINDRONE ETHIN ESTRADIOL PO SCH (09:00)
== END 2022-11-25 21:27 | disposition home or self-care (01) ==
LOC: JP.SDS 05:51 → JP.MS 10:37
PROVIDERS: ADMIT Student in an Organized Health Care Education/Training Program; ATTEND Student in an Organized Health Care Education/Training Program
DX: K81.1 Chronic cholecystitis (principal); K82.8 Other specified diseases of gallbladder; F41.1 Generalized anxiety disorder; F33.1 Major depressive disorder, recurrent, moderate; K21.9 Gastro-esophageal reflux disease without esophagitis; F41.9 Anxiety disorder, unspecified; E66.9 Obesity, unspecified; Z79.82 Long term (current) use of aspirin; Z79.899 Other long term (current) drug therapy; Z88.1 Allergy status to other antibiotic agents; Z88.2 Allergy status to sulfonamides; Z68.38 Body mass index [BMI] 38.0-38.9, adult
CPT/HCPCS: 47562; 81025; 88304; 94640; 96374; 96375; 96376; A9270; G0378; J0330; J1100; J1885; J2405; J2543; J2704; J2710; J3010; J3410; J3490; J7120; J7620

== ENCOUNTER 2023-06-26 23:01 | Emergency (ER) | payer MEDICAID ==
[2023-06-26 23:34] VITALS: BP 140/84
[2023-06-27 00:11] LABS: BASOPHILS ABSOLUTE AUTO 0.03 K/uL (0.00-0.10); BASOPHILS PERCENT AUTO 0.6 % (0.1-1.3); EOSINOPHILS ABSOLUTE AUTO 0.24 K/uL (0.00-0.40); EOSINOPHILS PERCENT AUTO 5.2 % (0.0-5.4); HEMATOCRIT 40.5 % (34.3-46.0); HEMOGLOBIN 14.1 g/dL (11.2-15.5); IMMATURE GRAN ABSOLUTE AUTO 0.02 K/uL (0.00-0.23); IMMATURE GRAN PERCENT AUTO 0.4 % (0.0-0.7); LYMPHOCYTES PERCENT AUTO 30.2 % (11.4-47.7); MEAN CORPUSCULAR HEMOGLOBIN 29.6 pg (31.6-35.5); MEAN CORPUSCULAR HGB CONC 34.8 g/dL (31.6-35.5); MEAN CORPUSCULAR VOLUME 85.1 fL (81.4-99.0); MONOCYTES ABSOLUTE AUTO 0.47 K/uL (0.20-0.90); MONOCYTES PERCENT AUTO 10.1 % (3.3-12.6); NEUTROPHILS ABSOLUTE AUTO 2.48 K/uL (1.0-7.6); NEUTROPHILS PERCENT AUTO 53.5 % (40.0-78.1); PLATELET COUNT,PLT 236 K/uL (130-375); RED BLOOD CELL COUNT 4.76 M/uL (3.77-5.24); WHITE BLOOD CELL COUNT,WBC 4.6 K/uL (3.2-11.0)
[2023-06-27] MEDS: Sodium Chloride 0.9% 1,000 ML IV SCH (00:22)
[2023-06-27] MEDS: Albuterol/Ipratropium 3.0-0.5 MG/3 ML Neb Soln NEB ONE ×2 (00:23→01:43)
[2023-06-27] MEDS: methylPREDNISolone Sodium Succinate 125 MG/2 ML SDV IVPUSH ONE (00:23)
[2023-06-27 00:33] LABS: ALANINE AMINOTRANSFERASE,ALT 42 U/L (12-78); ALBUMIN 3.7 g/dL (3.4-5.0); ALKALINE PHOSPHATASE 82 U/L (46-116); ANION GAP 12.2 mmol/L (5.0-14.0); ASPARTATE AMNIOTRANSFERASE,AST 29 U/L (15-37); BILIRUBIN TOTAL 0.4 mg/dL (0.2-1.0); BLOOD UREA NITROGEN,BUN 8 mg/dL (7-18); C-REACTIVE PROTEIN 1.56 mg/dL (<0.50); CALCIUM 8.8 mg/dL (8.5-10.1); CARBON DIOXIDE,CO2 26 mmol/L (21-32); CHLORIDE,CL 103 mmol/L (100-108); CREATININE 1.1 mg/dL (0.6-1.0); EST CRCL DRUG DOSING (CG) 72.72 mL/min; ESTIMATED GFR 69 mL/min (>60); GLUCOSE RANDOM 128 mg/dL (74-106); POTASSIUM,K 3.7 mmol/L (3.6-5.2); PROTEIN TOTAL,TP 7.4 g/dL (6.4-8.2); SODIUM,NA 141 mmol/L (140-148)
[2023-06-27 00:44] LABS: CORONAVIRUS COVID-19 NAA NEGATIVE (NEGATIVE); INFLUENZA A NAA NEGATIVE (NEGATIVE); INFLUENZA B NAA NEGATIVE (NEGATIVE); RESPIRATORY SYNCYTIAL VIR NAA NEGATIVE (NEGATIVE)
[2023-06-27 01:20] LABS: APPEARANCE,URINE CLEAR (CLEAR); BILIRUBIN,URINE NEGATIVE (NEGATIVE); COLOR,URINE YELLOW (YELLOW); GLUCOSE,URINE NEGATIVE (NEGATIVE); KETONES,URINE NEGATIVE (NEGATIVE); LEUKOCYTE ESTERASE,URINE TRACE (NEGATIVE); NITRITE,URINE NEGATIVE (NEGATIVE); OCCULT BLOOD,URINE TRACE-INTACT (NEGATIVE); PROTEIN,URINE NEGATIVE (NEGATIVE); UROBILINOGEN,URINE 0.2 EU/dL (0.2-1.0)
[2023-06-27 01:23] LABS: AMORPHOUS SEDIMENT,URINE NOT SEEN; BACTERIA,URINE FEW; EPITHELIAL CELLS,URINE FEW; MUCUS,URINE NOT SEEN; RBC,URINE 0-5 (0-5); WBC,URINE 0-5 (0-5)
[2023-06-27 01:45] VITALS: PULSE 90
== END 2023-06-27 02:14 | disposition home or self-care (01) ==
LOC: JP.ED 23:01
DX: J45.909 Unspecified asthma, uncomplicated (principal); Z88.1 Allergy status to other antibiotic agents; Z88.2 Allergy status to sulfonamides; Z79.82 Long term (current) use of aspirin; Z79.899 Other long term (current) drug therapy; Z79.51 Long term (current) use of inhaled steroids; Z86.16 Personal history of COVID-19; Z90.49 Acquired absence of other specified parts of digestive tract
CPT/HCPCS: 0241U; 36415; 71046; 80053; 81001; 81025; 83605; 85025; 86140; 94640; 96361; 96374; 99284; 99285; J2930; J7030; J7620

== ENCOUNTER 2023-09-26 18:35 | Emergency (ER) | payer MEDICAID ==
[2023-09-26 18:55] VITALS: BP 135/85; PULSE 125
[2023-09-26 19:44] LABS: BASOPHILS ABSOLUTE AUTO 0.03 K/uL (0.00-0.10); BASOPHILS PERCENT AUTO 0.4 % (0.1-1.3); EOSINOPHILS ABSOLUTE AUTO 0.06 K/uL (0.00-0.40); EOSINOPHILS PERCENT AUTO 0.9 % (0.0-5.4); HEMATOCRIT 39.9 % (34.3-46.0); HEMOGLOBIN 14.3 g/dL (11.2-15.5); IMMATURE GRAN ABSOLUTE AUTO 0.03 K/uL (0.00-0.23); IMMATURE GRAN PERCENT AUTO 0.4 % (0.0-0.7); LYMPHOCYTES ABSOLUTE AUTO 0.84 K/uL (0.8-3.3); LYMPHOCYTES PERCENT AUTO 12.3 % (11.4-47.7); MEAN CORPUSCULAR HEMOGLOBIN 29.8 pg (31.6-35.5); MEAN CORPUSCULAR HGB CONC 35.8 g/dL (31.6-35.5); MEAN CORPUSCULAR VOLUME 83.1 fL (81.4-99.0); MONOCYTES ABSOLUTE AUTO 0.42 K/uL (0.20-0.90); MONOCYTES PERCENT AUTO 6.2 % (3.3-12.6); NEUTROPHILS ABSOLUTE AUTO 5.43 K/uL (1.0-7.6); NEUTROPHILS PERCENT AUTO 79.8 % (40.0-78.1); PLATELET COUNT,PLT 218 K/uL (130-375); WHITE BLOOD CELL COUNT,WBC 6.8 K/uL (3.2-11.0)
[2023-09-26] MEDS: Sodium Chloride 0.9% 1,000 ML IV SCH (19:57)
[2023-09-26] MEDS: Ketorolac 30 MG/ML SDV IVPUSH ONE (20:00)
[2023-09-26] MEDS: Ondansetron 4 MG/2 ML SDV IVPUSH ONE (20:00)
[2023-09-26 20:05] LABS: A/G RATIO 0.9 (1.2-2.2); ALANINE AMINOTRANSFERASE,ALT 29 U/L (12-78); ALBUMIN 3.7 g/dL (3.4-5.0); ALKALINE PHOSPHATASE 101 U/L (46-116); ASPARTATE AMNIOTRANSFERASE,AST 16 U/L (15-37); BILIRUBIN TOTAL 0.7 mg/dL (0.2-1.0); BLOOD UREA NITROGEN,BUN 11 mg/dL (7-18); CALCIUM 8.9 mg/dL (8.5-10.1); CARBON DIOXIDE,CO2 26 mmol/L (21-32); CHLORIDE,CL 103 mmol/L (100-108); CREATININE 1.1 mg/dL (0.6-1.0); EST CRCL DRUG DOSING (CG) 72.74 mL/min; ESTIMATED GFR 69 mL/min (>60); GLUCOSE RANDOM 105 mg/dL (74-106); POTASSIUM,K 3.5 mmol/L (3.6-5.2); PROTEIN TOTAL,TP 7.8 g/dL (6.4-8.2); SODIUM,NA 140 mmol/L (140-148)
[2023-09-26 20:11] LABS: ANION GAP 14.5 mmol/L (5.0-14.0)
[2023-09-26 20:20] LABS: APPEARANCE,URINE CLEAR (CLEAR); BILIRUBIN,URINE NEGATIVE (NEGATIVE); COLOR,URINE YELLOW (YELLOW); GLUCOSE,URINE NEGATIVE (NEGATIVE); KETONES,URINE NEGATIVE (NEGATIVE); LEUKOCYTE ESTERASE,URINE TRACE (NEGATIVE); NITRITE,URINE NEGATIVE (NEGATIVE); OCCULT BLOOD,URINE NEGATIVE (NEGATIVE); PH,URINE 8.5 (5.0-8.0); PROTEIN,URINE NEGATIVE (NEGATIVE)
[2023-09-26 20:26] LABS: AMORPHOUS SEDIMENT,URINE NOT SEEN; BACTERIA,URINE RARE; EPITHELIAL CELLS,URINE MODERATE; MUCUS,URINE MODERATE; RBC,URINE 0-5 (0-5); WBC,URINE 0-5 (0-5)
== END 2023-09-26 22:05 | disposition home or self-care (01) ==
LOC: JP.ED 18:35
DX: K63.89 Other specified diseases of intestine (principal); Z90.49 Acquired absence of other specified parts of digestive tract; Z79.899 Other long term (current) drug therapy; Z88.2 Allergy status to sulfonamides; Z88.1 Allergy status to other antibiotic agents
CPT/HCPCS: 36415; 71046; 74176; 80053; 81001; 81025; 85025; 85379; 96374; 96375; 99284; J1885; J2405; J7030

== ENCOUNTER 2024-03-11 22:16 | Emergency (ER) | payer MEDICAID ==
[2024-03-11 22:57] LABS: BASOPHILS ABSOLUTE AUTO 0.04 K/uL (0.00-0.10); BASOPHILS PERCENT AUTO 0.6 % (0.1-1.3); EOSINOPHILS ABSOLUTE AUTO 0.12 K/uL (0.00-0.40); EOSINOPHILS PERCENT AUTO 1.8 % (0.0-5.4); HEMOGLOBIN 13.3 g/dL (11.2-15.5); IMMATURE GRAN ABSOLUTE AUTO 0.05 K/uL (0.00-0.23); IMMATURE GRAN PERCENT AUTO 0.7 % (0.0-0.7); LYMPHOCYTES ABSOLUTE AUTO 2.55 K/uL (0.8-3.3); LYMPHOCYTES PERCENT AUTO 37.9 % (11.4-47.7); MEAN CORPUSCULAR HEMOGLOBIN 30.2 pg (31.6-35.5); MEAN CORPUSCULAR VOLUME 86.4 fL (81.4-99.0); MONOCYTES ABSOLUTE AUTO 0.46 K/uL (0.20-0.90); MONOCYTES PERCENT AUTO 6.8 % (3.3-12.6); NEUTROPHILS PERCENT AUTO 52.2 % (40.0-78.1); PLATELET COUNT,PLT 239 K/uL (130-375); WHITE BLOOD CELL COUNT,WBC 6.7 K/uL (3.2-11.0)
[2024-03-11 23:20] LABS: ANION GAP 8.7 mmol/L (5.0-14.0); BLOOD UREA NITROGEN,BUN 14 mg/dL (7-18); CALCIUM 9.1 mg/dL (8.5-10.1); CARBON DIOXIDE,CO2 30 mmol/L (21-32); CHLORIDE,CL 102 mmol/L (100-108); CREATININE 0.9 mg/dL (0.6-1.0); EST CRCL DRUG DOSING (CG) 88.07 mL/min; ESTIMATED GFR 88 mL/min (>60); GLUCOSE RANDOM 103 mg/dL (74-106); POTASSIUM,K 3.6 mmol/L (3.6-5.2); SODIUM,NA 141 mmol/L (140-148)
[2024-03-11 23:21] LABS: TROPONIN I HIGH SENSITIVITY < 4.0 pg/mL (<=60.3)
[2024-03-11 23:48] VITALS: BP 126/80; PULSE 84
== END 2024-03-11 23:43 | disposition home or self-care (01) ==
LOC: JP.ED 22:16
DX: R07.9 Chest pain, unspecified (principal); Z90.49 Acquired absence of other specified parts of digestive tract; Z88.1 Allergy status to other antibiotic agents; Z88.2 Allergy status to sulfonamides; Z79.899 Other long term (current) drug therapy
CPT/HCPCS: 36415; 71045; 80048; 84484; 85025; 85379; 93005; 99285